=== PATIENT | male | born 1955 | race Caucasian/White ===

== ENCOUNTER 2022-03-04 13:14 | Outpatient (CLI) | payer MEDICARE, BC, SELFPAY ==
--- OUTSIDE RECORDS SUMMARY | 2022-03-04 07:24 | XMS_ITS | Encounter Summary ---
:1955 Author Organization [facility] Address [address] [place] [address] Care Team Providers Name Role Phone Elsewhere, Pcp Primary Care Provider Unavailable Reason for Visit Reason Onset Date Comments Outpatient COVID-19 Testing 05/16/2020 Encounter Details Date Type Department Care Team Description 05/16/2020 External Outreach Department of Shawn Agustin Infect ion [facility] Internal Medicine in J, D.O. Respiratory (Primary [place], [place] [address] Dx) [address] [place] [phone] Social History Tobacco Use Types Packs/Day Years Used Date Smoking Tobacco: Never Smokeless Tobacco: Never Alcohol Habits Answer Date Recorded How often do you have a drink containing alcohol? 2-4 times a month 02/19/2022 How many drinks containing alcohol do you have on a 1 or 2 02/19/2022 typical day when you are drinking? How often do you have six or more drinks on one Never 02/19/2022 occasion? Comment: Not asked Social Isolation Answer Date Recorded In a typical week, how many times do you More than three peter es a week 02/19/2022 talk on the phone with family, friends, or neighbors? How often do you get together with friends More than three t imes a week 02/19/2022 or relatives? How often do you attend adventism or More than 4 times per year 02/19/2022 sabianist services? Do you belong to any clubs or Yes 02/19/2022 organizations such as adventism groups, unions, fraternal or athletic groups, or school groups? How often do you attend meetings of the More than 4 times pe r year 02/19/2022 clubs or organizations you belong to? Are you now , , , 02/19/2022 , never or living with a partner? Physical Activity Answer Date Recorded On average, how many days per week do you engage in moderate to 6 days 02/19/2022 strenuous exercise (like walking fast, running, jogging, dancing, swimming, biking, or other activities that cause a light or heavy sweat)? On average, how many minutes do you engage in exercise at th is 140 min 02/19/2022 level? Stress Answer Date Recorded Do you feel stress - tense, restless, nervous, or anxious, N ot at all 02/19/2022 or unable to sleep at night because your mind is troubled all the time - these days? Financial Resource Strain Answer Date Recorded How hard is it for you to pay for the very basics like Not h jony at all 02/19/2022 food, housing, medical care, and heating? Intimate Partner Violence Answer Date Recorded Within the last year, have you been afraid of your partner o r No 02/19/2022 ex-partner? Within the last year, have you been humiliated or emotionall y No 02/19/2022 abused in other ways by your partner or ex-partner? Within the last year, have you been kicked, hit, slapped, or No 02/19/2022 otherwise physically hurt by your partner or ex-partner? Within the last year, have you been raped or forced to have any No 02/19/2022 kind of sexual activity by your partner or ex-partner? Food Insecurity Answer Date Recorded Within the past 12 months, you worried that your food would Never true 02/19/2022 run out before you got money to buy more. Within the past 12 months, the food you bought just didn't N ever true 02/19/2022 last and you didn't have money to get more. Transportation Needs Answer Date Recorded In the past 12 months, has lack of transportation kept you f rom No 02/19/2022 medical appointments or from getting medications? In the past 12 months, has lack of transportation kept you f rom No 02/19/2022 meetings, work, or getting things needed for daily living? Housing Stability Answer Date Recorded In the last 12 months, was there a time when you were not ab le No 02/19/2022 to pay the mortgage or rent on time? In the last 12 months, how many places have you lived? 1 02/19/2022 In the last 12 months, was there a time when you did not hav e a No 02/19/[address] or slept in a fci (including now)? Education Answer Date Recorded What is the highest level of Professional school degree (e.g ., , 01/06/2019 school you have completed or the DDS, DVM, NAHED) highest degree you have received? Sex Assigned at Date Recorded Male 12/02/2017 10:04 PM CDT documented as of this encounter Progress Notes Susannah Sepulveda R.N. - 05/16/2020 3:33 PM CST Encounter created for the drive-through COVID-19 testing. LOGIST documented in this encounter Plan of Treatment Not on filedocumented as of this encounter Procedures Procedure Name Priority Date/Time Associated Diagnosis Comme nts SARS CORONAVIRUS-2 Routine 05/16/2020 4:12 PM Infection Upper Results for this RNA, V CYTOLOGIST Respiratory procedure are i n the results section. documented in this encounter Results (ABNORMAL) SARS Coronavirus-2 RNA, V Symptomatic (05/16/2020 4:12 PM CYTOLOGIST) [facility] Method Time Signature SARS-CoV-2 Swab, 05/17/2020 MKTO Specimen Nasopharynx 4:59 PM CYTOLOGIST Source SARS CoV-2 Detected (C) Undetected 05/17/2020 MKTO RNA, TMA 4:59 PM CYTOLOGIST Comment: SARS-CoV-2 RNA present. ----ADDITIONAL INFORMATION---- This test is performed using the Aptima SARS-CoV-2 assay ([employer] which has received Emergency Use Authori zation (EUA) by the U.S. Food and Drug Administration. Fact sheets for this Emergency Use Autho rization (EUA) assay can be found at the following links: For Healthcare Providers: https://www.fd a.gov/media/050675/download For Patients: https://www.fda.gov/media/ 274979/download Specimen Anatomical Collection Method Collection Time Receive d Time (Source) Location / / Volume Laterality Varies 05/16/2020 4:12 PM 0 9:59 (Nasopharynx) CYTOLOGIST AM CYTOLOGIST Shawn Agustin D.O. LAB MICROBIOLOGY - GENERAL O RDERABLES Performing Organization Address City/State/[facility] Phon e Number [facility]- [address] [place] [address] [place] [address] System [address] documented in this encounter Visit Diagnoses Diagnosis Infection Upper Respiratory - Primary documented in this encounter Additional Health Concerns Infection Onset Date Last Indicated Resolved Time COVID19 Pending 05/16/2020 05/16/2020 05/17/2020 4:59 PM CYTOLOGIST documented as of this encounter Care Teams Psychologist Counseling Relationship Specialty Start Date End Date Elsewhere, Pcp PCP - General Internal Medicine 01/03/20 documented as of this encounter
--- OUTSIDE RECORDS SUMMARY | 2022-03-04 07:24 | XMS_ITS | Encounter Summary ---
:1955 Author Organization [facility] Address [address] [place] [address] Care Team Providers Name Role Phone Elsewhere, Pcp Primary Care Provider Unavailable Encounter Details Date Type Department Care Team Description 05/16/2020 Admin Visit Department of Family Medicine, [address] [address] [facility] [phone] Social History Tobacco Use Types Packs/Day Years [...] or relatives? How often do you attend judaism or More than 4 times per year 02/19/2022 nondenominational services? Do you belong to any clubs or Yes 02/19/2022 organizations such as judaism groups, unions, fraternal or athletic groups, or [...] place to sleep or slept in a chcf (including now)? Education Answer Date Recorded What is the highest level of Professional school degree (e.g ., , 01/06/2019 school you have completed or the DDS, DVM, NAHED) highest degree you have received? 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
--- OUTSIDE RECORDS SUMMARY | 2022-03-04 07:24 | XMS_ITS | Encounter Summary ---
:1955 Author Organization [facility] Address [address] [place] [id number] Care Team Providers Name Role Phone Nicole Andrade M.D., M.H.A. Primary Care Provider [phone] Reason for Referral Outpatient (Routine) - Closed Specialty Diagnoses / Procedures Referred By Contact Refer red To Contact Ophthalmology Naima Garcia M.D . [address] [phone] Referral ID Status Reason Start Date Expiration Date Visits Requ ested Visits Authorized [id number] Closed 12/31/2017 12/31/2018 1 1 Scheduling Instructions TD, with KPK 1 PM Encounter Details Date Type Department Care Team Description 12/31/2017 Documentation Department of Ophthalmology Peggy Garcia, in [facility] giselle Young [address] [place] [phone] Social History Tobacco Use Types Packs/Day Years Used Date Smoking Tobacco: Never Alcohol Habits Answer Date Recorded [...] or relatives? How often do you attend presybeterian or More than 4 times per year 02/19/2022 advent services? Do you belong to any clubs or Yes 02/19/2022 organizations such as presybeterian groups, unions, fraternal or athletic groups, or [...] place to sleep or slept in a jail (including now)? Sex Assigned at Date Recorded Male 12/02/2017 10:04 PM CDT documented as of this encounter Progress Notes Naima Garcia M.D. - 12/31/2017 11:04 AM CDT #1 Posterior vitreous detachment, right eye No vitreous hemorrhage or posterior pigmented cells noted. No retinal tear or detachment. Plan: RTC in 4-6 weeks. Discussed returning sooner if new or worsening symptoms, including flashes, new floaters, VF defect, worsening vision, or other new symptoms. Contact information provided. Patient expressed understanding and was in agreement with the plan. #2 Pinguecula, both eyes Mild; monitor documented in this encounter Plan of Treatment Scheduled Referrals Name Type Priority Associated Order Schedule Diagnoses Ophthalmology office Outpatient Referral Routine Expected: visit (clinic) 01/31/2018 (Approximate), Expires: 12/31/2020 documented as of this encounter Visit Diagnoses Diagnosis Detachment Vitreous Posterior Right - Pr imary Pinguecula Bilateral documented in this encounter Care Teams Regular Senior Care Provider Relationship Specialty Start Date End Date Nicole Andrade M.D., PCP - General Internal Medicine 09/03/10 02/01/18 M.H.A. [address] [place] [phone] documented as of this encounter
--- OUTSIDE RECORDS SUMMARY | 2022-03-04 07:24 | XMS_ITS | Encounter Summary ---
:1955 Author Organization [facility] Address [address] [place] [address] Care Team Providers Name Role Phone Nicole Andrade M.D., M.H.A. Primary Care Provider Encounter Details Date Type Department Care Team Description 11/03/2012 Hospital Encounter HX NO MAPPING Social History Tobacco Use Types Packs/Day Years Used Date Smoking Tobacco: Never Assessed Alcohol Habits Answer Date Recorded How often [...] or relatives? How often do you attend tenriism or More than 4 times per year 02/19/2022 mosque services? Do you belong to any clubs or Yes 02/19/2022 organizations such as tenriism groups, unions, fraternal or athletic groups, or [...] place to sleep or slept in a retirement (including now)? Sex Assigned at Date Recorded Male 12/02/2017 10:04 PM CDT documented as of this encounter Medications at Time of Discharge Medication Sig Dispensed Refills Start Date End Date aspirin 81 mg chewable Chew 1 tablet daily. 0 tablet cholecalciferol (VITAMIN Take 1 capsule by 0 12/03 D3) 1,000 Unit capsule mouth daily. 2000 DOCOSAHEXANOIC ACID/EPA Take 2 capsules by 0 09/01 (FISH OIL ORAL) mouth daily. Contains 500 mg Prosper-3 Fatty acids per capsule Take with meals multivitamin tablet Take 1 tablet by 0 09/16/2010 mouth daily. documented as of this encounter Plan of Treatment Not on filedocumented as of this encounter Visit Diagnoses Not on filedocumented in this encounter Care Teams Spd Manager Relationship Specialty Start Date End Date Nicole Andrade M.D., PCP - General Internal Medicine 09/03/10 02/01/18 M.H.A. [address] [place] [address] documented as of this encounter
--- OUTSIDE RECORDS SUMMARY | 2022-03-04 07:24 | XMS_ITS | Encounter Summary ---
:1955 Author Organization [facility] Address [address] [place] [address] Care Team Providers Name Role Phone Elsewhere, Pcp Primary Care Provider Unavailable Encounter Details Date Type Department Care Team Description 01/03/2020 Orders Only Department of Family Employer Based, [facility] [place] Covid Serology Screeni For Other Clinic, in [place], Testing Viral [facility] (COVID-19) (Primary [address]) [place] [address] Social History Tobacco Use Types Packs/Day Years [...] or relatives? How often do you attend islam or More than 4 times per year 02/19/2022 pentecostalism services? Do you belong to any clubs or Yes 02/19/2022 organizations such as islam groups, unions, fraternal or athletic groups, or [...] minutes do you engage in exercise at is 140 min 02/19/2022 level? Stress Answer [...] place to sleep or slept in a custodial (including now)? Education Answer Date Recorded What is the highest level of Professional school degree (e.g ., , 01/06/2019 school you have completed or the DDS, DVM, NAHED) highest degree you have received? Sex Assigned at Date Recorded Male 12/02/2017 10:04 PM CDT documented as of this encounter Plan of Treatment Not on filedocumented as of this encounter Results SARS-CoV-2 Total Antibody, Serum (01/03/2020 12:25 PM CDT) [facility] Method Time Signature SARS-CoV-2 Negative Negative 01/04/2020 ECLR Nucleocapsid 2:36 AM CDT Total Ab, S Comment: No antibodies to SARS-CoV-2 detected. Ne gative results may occur in serum collected too soon fo llowing infection or in immunosuppressed patients. Follow- up testing with a molecular test is recommended in symptom atic patients. This test should not be used to exclude activ e/recent COVID-19. ----ADDITIONAL INFORMATION---- Testing was performed using the Wayne El ecsys [id number] Reagent assay from [employer], which has received Emergency Use Authori zation(EUA) by the U.S. Food and Drug Administration . Fact sheets for this Emergency Use Autho rization (EUA) assay can be found at the following link s: For Healthcare Providers: https://www.fda.gov/media/521064/downloa d For Patients: https://www.fda.gov/media/047947/downloa d Specimen Anatomical Collection Method Collection Time Receive d Time (Source) Location / / Volume Laterality Blood (Blood, 01/03/2020 12:25 01/03/2020 9:51 Venous) PM CDT PM CDT Covid Serology Testing Employer Based LAB MICROBIOLOGY - BLOOD ORDERABLES Performing Organization Address City/State/ZIP Code Phon e Number [facility]- [address] [place] [address] [phone] [facility] [place] [address] System [address] documented in this encounter Visit Diagnoses Diagnosis Encounter For Screening For Other Viral Diseases (COVID-19) - Primary documented in this encounter Care Teams Painter Chassis Relationship Specialty Start Date End Date Elsewhere, Pcp PCP - General Internal Medicine 01/03/20 documented as of this encounter
--- OUTSIDE RECORDS SUMMARY | 2022-03-04 07:24 | XMS_ITS | Encounter Summary ---
:1955 Author Organization [facility] Address [address] [place] [address] Care Team Providers Name Role Phone Elsewhere, Pcp Primary Care Provider Unavailable Encounter Details Date Type Department Care Team Description 11/04/2020 Ancillary Procedure Department of Dermatology Social History Tobacco Use Types Packs/Day Years [...] or relatives? How often do you attend pentecostalism or More than 4 times per year 02/19/2022 pentecostal services? Do you belong to any clubs or Yes 02/19/2022 organizations such as pentecostalism groups, unions, fraternal or athletic groups, or [...] place to sleep or slept in a care home (including now)? Education Answer Date Recorded What [...] encounter Procedures Procedure Name Priority Date/Time Associated Comments Diagnosis DERMATOLOGY IMAGE Routine 11/04/2020 4:45 PM Resu lts for this EXAM CDT procedure are i n the results section. documented in this encounter Results Right Foot 529a-Dermatology Image Exam (11/04/2020 4:45 PM CDT) Specimen (Source) Anatomical Collection Method Collection Time Re ceived Time Location / / Volume Laterality 11/04/2020 4:43 PM CDT Narrative [facility] - 11/04/2020 4:46 PM CDT This order has been created and auto-finalized to support the import of images acquired without order. The clini thelma documentation to support these images can be found on the encounter negin t produced images. Provider Not In System IMG NON RAD IMAGING PROCEDUR ES Performing Organization Address City/State/ZIP Code Phon e Number [facility] NA documented in this encounter Visit Diagnoses Not on filedocumented in this encounter Care Teams Motel Manager Relationship Specialty Start Date End Date Elsewhere, Pcp PCP - General Internal Medicine 01/03/20 documented as of this encounter
--- OUTSIDE RECORDS SUMMARY | 2022-03-04 07:24 | XMS_ITS | Encounter Summary ---
:1955 Author Organization [facility] Address [address] [place] [address] Care Team Providers Name Role Phone Elsewhere, Pcp Primary Care Provider Unavailable Reason for Referral Outpatient (Routine) - Authorized Specialty Diagnoses / Procedures Referred By Contact Refer red To Contact Dermatology Yaa Hamm M.D. [facility] [address] [place] [address] Referral ID Status Reason Start Date Expiration Date Visits V isits Requested Authorized [id number] Authorized 02/23/2022 02/22/2025 1 1 Reason for Visit Appointment Request (Routine) - Closed Specialty Diagnoses / Procedures Referred By Contact Refer red To Contact Dermatology Diagnoses Screening Examination Skin Cancer Referral ID Status Reason Start Date Expiration Date Visits Requ ested Visits Authorized [id number] Closed 12/29/2021 12/29/2022 1 1 Encounter Details Date Type Department Care Team Description 02/23/2022 Office Visit Department of Isaq, Chadwick A, Cancer Skin Basal Cell Personal History (Primary Dx); Dermatology in M.D. Dermatoheliosis; [place], [place] [address] [facility] Keratosis Seborrheic; [address] [place], [place] Angioma Clarke; [place] [address] Nevi Multiple [phone] Social History Tobacco Use Types Packs/Day Years [...] or relatives? How often do you attend latter day or More than 4 times per year 02/19/2022 rastafarian services? Do you belong to any clubs or Yes 02/19/2022 organizations such as latter day groups, unions, fraternal or athletic groups, or [...] place to sleep or slept in a snf (including now)? Education Answer Date Recorded What is the highest level of Professional school degree (e.g ., , 01/06/2019 school you have completed or the DDS, DVM, NAHED) highest degree you have received? Sex Assigned at Date Recorded Male 12/02/2017 10:04 PM CDT documented as of this encounter Progress Notes Chadwick Tobin M.D. - 02/23/2022 9:20 AM CDT Correspondence to: Chadwick Tobin M.D. Supervising apprenticeship consultant, Dr. Hamm, was immediately available, but consultation was not required. 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 He was last seen in Dermatology on 12/30/[address] Tom and a biopsy was obtained from the right posterior forearm which showed an actinic lentigo. Another biopsy was obtained from the upper central sternum which was a pigmented seborrheic keratosis. Today, the patient is presenting for a full skin check. He noted a brown spot on his left pre-auricular cheek and left upper back that he would like further evaluation. Otherwise, the patient is retired and enjoys biking daily. He uses sunscreen before he goes out for his bike rides and does not reapply it. He has no other concerns. 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 He has 3 children and 4 grandchildren. Allergies Allergen Reactions Benazepril Cough Vancomycin Itching PAST MEDICAL HISTORY History nonmelanoma skin cancer PHYSICAL EXAM General: Awake, alert, in no acute distress, and with appropriate affect. Eyes: No scleral injection or icterus. No eyelid abnormalities. Skin: I have examined the scalp, face, neck, chest, abdomen, back, bilateral upper extremities, and bilateral lower extremities, and buttocks. -White skin type II -Well tanned skin with mild dermatoheliosis in sun exposed areas. -Primarily over the trunk and also on the extremities, there are scattered small brown round maculesand papules; many of these are examined dermoscopically and reveal regular symmetric network and appear consistent with banal-appearing nevi. -Scattered on face, trunk, and extremities, there are waxy stuck brown-chen papules and plaques consistent with seborrheic keratoses including spot of concern on left preauricular cheek and left upper back. -Over the trunk, there are a few bright red dome shaped papules consistent with clarke angiomas. -Ill-defined light brown to black macule/patch on sun-exposed areas consistent with solar lentigines ASSESSMENT / PLAN #1 Dermatoheliosis #2 History of nonmelanoma skin cancer Past history of skin cancer places this patient at increased risk of future NMSC. Sun protection andsun avoidance were reviewed with the patient. Educational materials were provided regarding skin self-examination, the warning signs and symptoms of skin cancer, and the proper use of sunscreens. Appropriate SPF sunscreen was recommended. I would recommend a full skin cancer screening examination withan appropriately trained clinician annually. #3 Banal-appearing nevi None of the patient's nevi reach the clinical threshold for biopsy. I recommend continued sun protection, self-skin examinations, and observation. Should any of the patient's nevi change in size, color, texture, or shape or develop symptoms such as itching or bleeding, I recommend an immediate return visit for reassessment. #4 Seborrheic keratoses #5 Clarke angiomas #6 Solar lentigines The benign nature of the skin lesion(s) was discussed with the patient. No treatment is required. I recommend continued observation. Should symptoms or changes develop related to this condition, I would recommend a return visit for reassessment. All questions answered. INFORMED CONSENT Discussed the risks, benefits, alternatives, and the necessity of other members of the healthcare team participating in the procedure. All questions answered and consent given. PATIENT EDUCATION Ready to learn. No apparent learning barriers were identified. Learning preferences include listening. Explained diagnosis and treatment plan; patient/guardian of patient expressed understanding of thecontent. documented in this encounter Plan of Treatment Scheduled Referrals Name Type Priority Associated Order Schedule Diagnoses Dermatology office Outpatient Referral Routine Ex pected: visit (clinic) 02/23/2023 (Approximate), Expires: 05/26/2023 documented as of this encounter Visit Diagnoses Diagnosis Cancer Skin Basal Cell Personal History - Primary Dermatoheliosis Keratosis Seborrheic Angioma Clarke Nevi Multiple documented in this encounter Care Teams Parts Salesperson Relationship Specialty Start Date End Date Elsewhere, Pcp PCP - General Internal Medicine 01/03/20 documented as of this encounter
--- OUTSIDE RECORDS SUMMARY | 2022-03-04 07:24 | XMS_ITS | Encounter Summary ---
:1955 Author Organization [facility] Address [address] [place] [address] Care Team Providers Name Role Phone Elsewhere, Pcp Primary Care Provider Unavailable Reason for Visit Reason Onset Date Comments Outpatient COVID-19 Testing 01/01/2020 Encounter Details Date Type Department Care Team Description 01/01/2020 External Outreach Department of Ally Marshall, P.A.-C. [address] [place] [address] Encounter For Family Medicine, Employer Based, Covid Serology Testing Screening For Other [facility], in [place], [place] (COVID-19) (Primary [address]) [place] [address] Social History Tobacco Use Types Packs/Day Years [...] or relatives? How often do you attend nondenominational or More than 4 times per year 02/19/2022 restorationist services? Do you belong to any clubs or Yes 02/19/2022 organizations such as nondenominational groups, unions, fraternal or athletic groups, or [...] place to sleep or slept in a senior care (including now)? Education Answer Date Recorded What is the highest level of Professional school degree (e.g ., , 01/06/2019 school you have completed or the DDS, DVM, NAHED) highest degree you have received? Sex Assigned at Date Recorded Male 12/02/2017 10:04 PM CDT documented as of this encounter Progress Notes Geena Salcido L.P.N. - 01/01/2020 8:21 AM CDT Encounter created for COVID-19 screening. documented in this encounter Plan of Treatment Not on filedocumented as of this encounter Procedures Procedure Name Priority Date/Time Associated Diagnosis Comme nts SARS-COV-2 IGG, Routine 01/01/2020 8:22 AM Encounter For Resul ts for this CHRISTOPHER, EMP SCRN, CDT Screening For Other proc edure are in BLOOD SPOT Viral Diseases the results (COVID-19) section. documented in this encounter Results (ABNORMAL) SARS-CoV-2 IgG, CHRISTOPHER, Emp Scrn, Blood Spot (01/01/2020 8:22 AM CDT) [facility] Method Time Signature SARS-CoV-2 Reactive (A) Negative 01/03/2020 SDSC IgG Emp Scrn, 2:30 AM CDT Ab Comment: This result is preliminary. ??False reac tive results can occur with this test. ??Do not assum e that you are protected based on these re sults alone. ?? Confirmation using another SARS-CoV-2 an tibody test, performed on blood drawn from a vein, is necessary to determine if you truly h ave antibodies. ?? Testing was performed using the EUROIMMU N Skaz-YUAD-YrB-2 CHRISTOPHER (IgG). ??This test has received Emergency Use Authorization (EUA) by the U.S. Food and Drug Administration and is used per city plant supervisor's instructions, but it is modified from the city plant supervisor's instructions wit h a bridging study to include dried blood spot specimens. ? ? Performance characteristics were verifie d by [facility] in a manner consistent with CLIA require ments. Specimen Anatomical Collection Method Collection Time Receive d Time (Source) Location / / Volume Laterality Blood (Blood, 01/01/2020 8:22 AM 01/02/20 20 5:11 Venous) CDT PM CDT Covid Serology Testing Employer Based LAB MICROBIOLOGY - BLOOD ORDERABLES Performing Organization Address City/State/ZIP Code Phon e Number [facility] [address] [place] [address] SUPPORT CENTER [facility] [place] [address] Laboratory Medicine and Pathology [address] [place] documented in this encounter Visit Diagnoses Diagnosis Encounter For Screening For Other Viral Diseases (COVID-19) - Primary documented in this encounter Care Teams Lathe Spotter Relationship Specialty Start Date End Date Elsewhere, Pcp PCP - General Family Medicine 02/02/18 01/02/20 documented as of this encounter
--- OUTSIDE RECORDS SUMMARY | 2022-03-04 07:24 | XMS_ITS | Clinical Summary ---
:1955 Author Organization [facility] Address [address] [place] [address] Care Team Providers Name Role Phone Elsewhere, Pcp Primary Care Provider Unavailable Source Comments Patient records contain information from all sites at [facility]. For routine questions regarding patient records, call [phone] during business hours, M-F 8:00 AM - 5:00 PM Central Time. Record requests for emergency care only can be directed to [phone] at any time.[facility] Allergies Active Allergy Reactions Severity Noted Date Comments Benazepril Cough 12/30/2010 Vancomycin Itching 08/22/2011 Medications Medication Sig Dispensed Refills Start Date End Date Status aspirin 81 mg chewable Chew 1 tablet 0 09/16/2010 Active tablet daily. DOCOSAHEXANOIC ACID/EPA Take 2 capsules 0 09/16/2010 Active (FISH OIL ORAL) by mouth daily. Contains 500 mg [place]-3 Fatty acids per capsule Take with meals multivitamin tablet Take 1 tablet by 0 09/16/2010 Active mouth daily. cholecalciferol Take 1 capsule by 0 12/29/2011 Active (VITAMIN D3) 1,000 Unit mouth daily. 2000 capsule naphazoline-pheniramine Administer 1 drop 0 Active (OPCON-A) 0.82653-7.315 into both eyes % ophthalmic solution daily. 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 Cancer S kin Basal Cell Personal History (Primary Dx); Dermatoheliosis ; Keratosis Sebor rheic; Angioma Clarke; Nevi Multiple from Last 3 Months Immunizations Name Administration Dates Next Due HepB, Unspecified 01/02/1980, 08/04/1979, 07/04/1979 Influenza Split 04/12/2012, 04/28/2011, 04/03/2010, 06/16/2007 MMR 01/02/1992 OPV 11/15/1959, 01/10/1959 SARS-COV-2 (COVID-19) - PFIZER (12 08/18/2020, 07/28/2020 years or older) Td, (Adult) Unspecified 01/02/1992 Tdap 01/23/2010 influenza vaccine quad 04/23/2020 (FLUZONE/FLUARIX) (6 months and older)(PF) Family History Medical History Relation Name Comments Melanoma Father Glaucoma Mother Relation Name Status Comments Father Mother Social History Tobacco Use Types Packs/Day Years [...] or relatives? How often do you attend alevism or More than 4 times per year 02/19/2022 roman catholic services? Do you belong to any clubs or Yes 02/19/2022 organizations such as alevism groups, unions, fraternal or athletic groups, or [...] place to sleep or slept in a prison (including now)? Education Answer Date Recorded What is the highest level of Professional school degree (e.g ., , 01/06/2019 school you have completed or the DDS, DVM, NAHED) highest degree you have received? Sex Assigned at Date Recorded Male 12/02/2017 10:04 PM CDT Last Filed Vital Signs Vital Sign Reading Time Taken Comments Blood Pressure 139/86 11/30/2013 8:54 AM Vital sign result CDT from Clinical No jennifer. Pulse 60 11/30/2013 8:54 AM Vital sign result CDT from Clinical No jennifer. Temperature - - Respiratory Rate 12 08/23/2011 6:20 AM EXPLOSIVE TECHNICIAN Oxygen Saturation - - Inhaled Oxygen - - Concentration Weight 81.3 kg (179 lb 3.7 11/15/2012 3:14 PM oz) CDT Height 106.5 cm (3' 5.93) 11/15/2012 3:14 PM CDT Body Mass Index 71.68 11/15/2012 3:14 PM CDT Plan of Treatment Health Maintenance Due Date Last Done Comments CT Colonography 1955 Cologuard 1955 FIT 1955 HIV Screening 1955 Hepatitis C Screening 1955 Fasting Glucose for Diabetes 08/22/2014 08/22/2011, 012 Screening DTaP,Tdap,and Td Vaccines (2 - Td 01/24/2020 01/23/2010, , or Tdap) 01/02/1992 Depression Screening (Annual 07/04/2021 PHQ-2) Fall Risk Screen (Annual) 2022 Pneumococcal vaccine (65+ years) 2022 (1 - PCV) Influenza Vaccine (#1) 2022 05/10/2021, 04/23/2020, 04/14/2019, Additional history exists Colonoscopy 11/03/2022 11/03/2012, 11/03/2012, 02/01/2007 (Performed elsewhere) Colorectal Cancer Screening 11/03/2022 Zoster Vaccines Completed 03/10/2021, 12/02/2020 COVID-19 Vaccine Completed 10/29/2021, 06/05/2021, 08/18/2020, Additional history exists Insurance Payer Benefit Plan / Subscriber ID Effective Phone Address T ype Group Dates [employer] [id number] 2022[place] [id number] Indemnity [place] [address] MEDICARE MEDICARE A AND [id number] 2022-Prese [id number] [place] [address] Advance Directives For more information, please contact: [phone] Documents on File Type Date Recorded 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 See document viewer. Care Teams Deputy Grand Jury Relationship Specialty Start Date End Date Elsewhere, Pcp PCP - General Internal Medicine 01/03/20
--- OUTSIDE RECORDS SUMMARY | 2022-03-04 07:24 | XMS_ITS | Encounter Summary ---
:1955 Author Organization [facility] Address [address] [place] [address] Care Team Providers Name Role Phone Nicole Andrade M.D., M.H.A. Primary Care Provider [phone] Encounter Details Date Type Department Care Team Description 11/30/2013 Hospital Encounter HX RST [facility] Stephanie Ruggiero M.D. [address] [place] [address] (Wo rk) Social History Tobacco Use Types Packs/Day Years [...] or relatives? How often do you attend mormonism or More than 4 times per year 02/19/2022 mu-ism services? Do you belong to any clubs or Yes 02/19/2022 organizations such as mormonism groups, unions, fraternal or athletic groups, or [...] place to sleep or slept in a group home (including now)? Sex Assigned at Date Recorded Male 12/02/2017 10:04 PM CDT documented as of this encounter Last Filed Vital Signs Vital Sign Reading Time Taken Comments Blood Pressure 139/86 11/30/2013 8:54 AM CDT Vital sign result from Clinical Notes. Pulse 60 11/30/2013 8:54 AM CDT Vital sign result from Clinical Notes. Temperature - - Respiratory Rate - - Oxygen Saturation - - Inhaled Oxygen Concentration - - Weight - - Height - - Body Mass Index - - documented in this encounter Medications at Time of Discharge Medication Sig Dispensed Refills Start Date End Date aspirin 81 mg chewable Chew 1 tablet daily. 0 tablet cholecalciferol (VITAMIN Take 1 capsule by 0 12/03 D3) 1,000 Unit capsule mouth daily. 2000 DOCOSAHEXANOIC ACID/EPA Take 2 capsules by 0 09/01 (FISH OIL ORAL) mouth daily. Contains 500 mg Bern-3 Fatty acids per capsule Take with meals multivitamin tablet Take 1 tablet by 0 09/16/2010 mouth daily. documented as of this encounter Plan of Treatment Not on filedocumented as of this encounter Visit Diagnoses Not on filedocumented in this encounter Care Teams Sweatband Perforator Relationship Specialty Start Date End Date Nicole Andrade M.D., PCP - General Internal Medicine 09/03/10 02/01/18 M.H.A. [address] [place] [address] documented as of this encounter
--- OUTSIDE RECORDS SUMMARY | 2022-03-04 07:24 | XMS_ITS | Encounter Summary ---
:1955 Author Organization [facility] Address [address] [place] [address] Care Team Providers Name Role Phone Elsewhere, Pcp Primary Care Provider Unavailable Encounter Details Date Type Department Care Team Description 08/18/2020 Immunization Department of [facility] Jhonny Tillman [facility] COVID-19 Medicine, Pawan Brumfield M.D. Vaccine Immunization [facility], in [address] [place] [phone] [place] [address] [place], [place] (Work) [phone] Social History Tobacco Use Types Packs/Day Years [...] or relatives? How often do you attend pentecostal or More than 4 times per year 02/19/2022 rastafarian services? Do you belong to any clubs or Yes 02/19/2022 organizations such as pentecostal groups, unions, fraternal or athletic groups, or [...] or slept in a retirement (including now)? Education Answer Date Recorded What is the highest level of Professional school degree (e.g ., , 01/06/2019 school you have completed or the DDS, DVM, NAHED) highest degree you have received? Sex Assigned at Date Recorded Male 12/02/2017 10:04 PM CDT documented as of this encounter Plan of Treatment Not on filedocumented as of this encounter Visit Diagnoses Diagnosis Encounter For COVID-19 Vaccine Immunizat ion documented in this encounter Care Teams Surgical Tech Relationship Specialty Start Date End Date Elsewhere, Pcp PCP - General Internal Medicine 01/03/20 documented as of this encounter
--- OUTSIDE RECORDS SUMMARY | 2022-03-04 07:24 | XMS_ITS | Encounter Summary ---
:1955 Author Organization [facility] Address [address] [place] [address] Care Team Providers Name Role Phone Elsewhere, [...] or relatives? How often do you attend muslim or More than 4 times per year 02/19/2022 mandaeism services? Do you belong to any clubs or Yes 02/19/2022 organizations such as muslim groups, unions, fraternal or athletic groups, or [...] Associated Comments Diagnosis DERMATOLOGY IMAGE Routine 11/04/2020 4:46 PM Resu lts for this EXAM CDT procedure are i n the results section. documented in this encounter Results Chest 521-Dermatology Image Exam (11/04/2020 4:46 PM CDT) Specimen (Source) Anatomical Collection Method [...] on filedocumented in this encounter Care Teams Manager E Commerce Relationship Specialty Start Date End Date Elsewhere, Pcp PCP - General Internal Medicine 01/03/20 documented as of this encounter
--- OUTSIDE RECORDS SUMMARY | 2022-03-04 07:24 | XMS_ITS | Encounter Summary ---
:1955 Author Organization [facility] Address [address] [place] [address] Care Team Providers Name Role Phone Elsewhere, Pcp Primary Care Provider Unavailable Reason for Visit Reason Comments Biopsy Outpatient (Routine) - Closed Specialty Diagnoses / Procedures Referred By Contact Refer red To Contact Dermatology Diagnoses [facility] Danna Tom M.D. [facility] Procedures Dermatology mis minor procedure [address] [place] [address] Referral ID Status Reason Start Date Expiration Date Visits Requ ested Visits Authorized [id number] Closed 11/04/2020 11/04/2021 1 1 Encounter Details Date Type Department Care Team Description 12/30/2020 Procedure visit Department of Danna Tom Tumor Skin Uncertain Behavior (Primary Dx); Dermatology in Pawan Cartagena M.D. [place], [place] [address] [phone] Social History Tobacco Use Types Packs/Day Years [...] or relatives? How often do you attend catholic or More than 4 times per year 02/19/2022 hindu services? Do you belong to any clubs or Yes 02/19/2022 organizations such as catholic groups, unions, fraternal or athletic groups, or [...] place to sleep or slept in a penitentiary (including now)? Education Answer Date Recorded What is the highest level of Professional school degree (e.g ., , 01/06/2019 school you have completed or the DDS, DVM, NAHED) highest degree you have received? Sex Assigned at Date Recorded Male 12/02/2017 10:04 PM CDT documented as of this encounter Progress Notes Danna Tom M.D. 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 The patient was last seen by me in Dermatology clinic on 11/04/2020nd photographs were taken at that time. MEDICAL HISTORY 1. Right islam: Nodular basal cell carcinoma, status post Mohs surgery on 11/30/[address] Casiano at [facility] ?? FAMILY HISTORY Father with history of melanoma OBJECTIVE PHYSICAL EXAMINATION General: Awake, alert, in no acute distress, and with appropriate affect. Skin: Limited skin exam done today. Examination of the right posterior forearm reveals a 1.5 x 1 mm brown nevus with slight irregular pigmentation. Examination of the upper central sternum reveals a 5 x 3.5 mm brown macule with slight irregular brown coloration and milia on dermoscopy and most likely represents a pigmented SK. ASSESSMENT / PLAN #1 Right posterior forearm: Rule out atypical nevus A 3mm punch biopsy removing the nevus was done in clinic and submitted for pathology. I will correspond with patient as to the results and if any further treatment is needed. CONSENT Discussed the risks, benefits, alternatives, and the necessity of other members of the healthcare team participating in the procedure. All questions answered and consent given. UNIVERSAL PROTOCOL Procedural pause conducted to verify: correct patient identity, procedure to be performed, and as applicable, correct side and site, correct patient position, and availability of implants, special equipment, or special requirements. PROCEDURE INFORMATION Punch biopsy. We explained the potential diagnosis and recommended that we obtain a biopsy. The risks and benefitsof the procedure were discussed, and the patient consented to these procedures. Using 1% lidocaine with epinephrine for local anesthesia, a 3 mm punch biopsy was obtained from the right posterior forearm. Biopsy submitted to Dermatopathology. Biopsy site closed with a top layer of 2, 4-0 nylon superficial sutures. The skin sutures need to be removed in 10-14 days. Dressing was applied, and wound careinstructions were explained. Biopsy results and any further recommendations will be communicated to the patient by letter. Patient given pamphlet [id number]. #2 Upper central sternum: Probable pigmented SK, doubt atypical nevus A shave biopsy removing the lesion was done in clinic and submitted for pathology. I will correspondwith patient as to the results and if any further treatment is needed. CONSENT Discussed the risks, benefits, alternatives, and the necessity of other members of the healthcare team participating in the procedure. All questions answered and consent given. UNIVERSAL PROTOCOL Procedural pause conducted to verify: correct patient identity, procedure to be performed, and as applicable, correct side and site, correct patient position, and availability of implants, special equipment, or special requirements. PROCEDURE INFORMATION Shave biopsy. We explained the potential diagnosis and recommended that we obtain a biopsy. The risks and benefitsof the procedure were discussed, and the patient consented to these procedures. Using 1% lidocaine with epinephrine for local anesthesia, a shave biopsy was obtained from the sternum (upper central) x 1 lesion. Biopsy submitted to Dermatopathology for H&E. Special stains will be performed as indicated. The bleeding was well controlled with application of aluminum chloride. Dressing was applied, and wound care instructions were explained. Biopsy results and any further recommendations will be communicated to the patient by letter. Patient given pamphlet [id number]. PATIENT EDUCATION: Ready to learn. No apparent learning barriers were identified. Learning preferences include listening. Explained diagnosis and treatment plan; patient/guardian of patient expressed understanding of thecontent. PATIENT EDUCATION: Ready to learn. No apparent learning barriers were identified. Learning preferences include listening. Explained diagnosis and treatment plan; patient/guardian of patient expressed understanding of thecontent. By signing my name below, I, Tanya Newton, attest that this documentation has been prepared underthe direction and in the presence of Danna Tom M.D. Electronically Signed: bj Seo. Danna Castro M.D., personally performed the services described in this documentation. All medical record entries made by the scribe were at my direction and in my presence. I have reviewed the chart and discharge instructions (if applicable) and agree that the record reflects my personal performance and is accurate and complete. Danna Tom M.D. documented in this encounter Miscellaneous Notes Result Encounter Note - Danna Tom M.D. - 01/08/2021 7:46 AM CDT B9 lesions x2 . [place] pt, please send letter. documented in this encounter Plan of Treatment Not on filedocumented as of this encounter Procedures Procedure Name Priority Date/Time Associated Comments Diagnosis DERMATOPATHOLOGY CONSULT Routine 12/30/2020 9:15 Tumor Skin Results for this AM CDT Uncertain Behavior procedure are in the results section. documented in this encounter Results Dermatopathology Consult (12/30/2020 9:15 AM CDT) Component Value Ref Test Analysis Performed Pathologis t Range Method Time At Signature 01/07/2021 PDRM 11:17 AM CDT Participated in Amy Sierra, 01/07/2021 PDR the M.D.-Pathology 11:17 AM Interpretation Fellow CDT Report Corinna Villavicencio, 01/07/2021 PDRM electronically MLui 11:17 AM signed by CDT Gross A: ?? Received in formalin labeled with the patient's name , 01/07/2021 PDRM Description: medical record number, and right posterior forearm i s a 11:17 AM 0.3 cm in diameter pale mack skin punch biopsy, excised to CDT the depth of 0.2 cm. ??Centrally located on the skin surface is a 0.2 x 0.1 cm dark brown, hyperpigmented lesion with ill-defined and irregular borders. The specimen is submitted en toto in cassette A1. Grossed by AF. B: ?? Received in formalin labeled with the patient's name, medical record number, and sternum, upper central is a 0.8 x 0.7 x 0.1 cm pale-mack skin shave biopsy. Eccentrically located on the skin surface and abutting the periphery is a 0.7 x 0.3 cm dark brown, hyperpigmented lesion with ill-defined and irregular borders. ??The specimen is trisected and submitted entirely in cassette B1. ??Grossed by AF. Interpetation FINAL DIAGNOSIS 01/07/2021 PDR A. ??DermPath Consult Wet Tissue; Right posterior forearm, 11:17 AM Skin punch biopsy: ??Actinic lentigo and focal junctional CDT nevus COMMENT Multiple tissue levels examined. ??Melan-A stain highlights melanocytes. B. ??DermPath Consult Wet Tissue; Sternum, upper central, Skin shave biopsy: ??Pigmented seborrheic keratosis Specimen Anatomical Collection Method Collection Time Receive d Time (Source) Location / / Volume Laterality Tissue 12/30/2020 9:15 AM CDT 11:13 AM CDT Narrative This result has an attachment that is no t available. Danna Tom M.D. LAB PATH DERM ORDERABLES Performing Organization Address City/State/ZIP Code Phon e Number [facility] - [address] [place], [place] [address] [facility] [place] [address] Laboratories-[facility] [address] documented in this encounter Visit Diagnoses Diagnosis Tumor Skin Uncertain Behavior - Primary Nevi Multiple documented in this encounter Care Teams Sheet Rock Applier Relationship Specialty Start Date End Date Elsewhere, Pcp PCP - General Internal Medicine 01/03/20 documented as of this encounter
--- OUTSIDE RECORDS SUMMARY | 2022-03-04 07:24 | XMS_ITS | Encounter Summary ---
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 How often do you attend yarsani or More than 4 times per year 02/19/2022 quaker services? Do you belong to any clubs or Yes 02/19/2022 organizations such as yarsani groups, unions, fraternal or athletic groups, or [...] place to sleep or slept in a halfway (including now)? Education Answer Date Recorded What is the highest level of Professional school degree (e.g ., , 01/06/2019 school you have completed or the DDS, DVM, NAHED) highest degree you have received? Sex Assigned at Date Recorded Male 12/02/2017 10:04 PM CDT documented as of this encounter Plan of Treatment Scheduled Referrals Name Type Priority Associated Diagnoses Order S sarahdule Covid immunization Outpatient Referral Routine Encounter For E xpected: office visit Covid-19 Vaccine 08/18/2020, Subsequent; 21 days Immunization Expires: 07/28/2023 documented as of this encounter Visit Diagnoses Diagnosis Encounter For COVID-19 Vaccine Immunizat ion - Primary documented in this encounter Care Teams Video Surveillance Technician Relationship Specialty Start Date End Date Elsewhere, Pcp PCP - General Internal Medicine 01/03/20 documented as of this encounter
--- OUTSIDE RECORDS SUMMARY | 2022-03-04 07:24 | XMS_ITS | Encounter Summary ---
:1955 Author Organization [facility] Address [address] [place] [address] Care Team Providers Name Role Phone Elsewhere, Pcp Primary Care Provider Unavailable Reason for Visit Reason Comments Flashes, Light Appointment Request (Routine) - Closed Specialty Diagnoses / Procedures Referred By Contact Refer red To Contact Ophthalmology Referral ID Status Reason Start Date Expiration Date Visits Requ ested Visits Authorized [id number] Closed 02/01/2018 02/01/2019 1 Encounter Details Date Type Department Care Team Description 02/28/2018 Office Visit Department of Naima Garcia Ophthalmology in P, [facility]. [facility] [place], [place] (Primary Dx) [address] [place] [phone] Social History Tobacco Use Types Packs/Day [...] More than 4 times per year 02/19/2022 anglican services? Do you belong to any clubs [...] or slept in a chcf (including now)? Sex Assigned at Date Recorded Male 12/02/2017 10:04 PM CDT documented as of this encounter Progress Notes Naima Garcia M.D. - 02/28/2018 1:30 PM CDT #1 Posterior vitreous detachment, right eye No vitreous hemorrhage or posterior pigmented cells noted. No retinal tear or detachment. Plan: Observe. Discussed returning sooner if new or worsening symptoms, including flashes, new floaters, VF defect, worsening vision, or other new symptoms. Contact information provided. Patient expressed understanding and was in agreement with the plan. #2 Pinguecula, both eyes Mild; monitor documented in this encounter Plan of Treatment Not on filedocumented as of this encounter Visit Diagnoses Diagnosis Detachment Vitreous Posterior Right - Pr imary documented in this encounter Care Teams Php Consultant Relationship Specialty Start Date End Date Elsewhere, Pcp PCP - General Family Medicine 02/02/18 01/02/20 documented as of this encounter
--- OUTSIDE RECORDS SUMMARY | 2022-03-04 07:24 | XMS_ITS | Encounter Summary ---
:1955 Author Organization [facility] Address [address] [place] [address] Care Team Providers Name Role Phone Nicole Andrade M.D., M.H.A. Primary Care Provider [phone] Reason for Visit Outpatient (Routine) - Closed Specialty Diagnoses / Procedures Referred By Contact Refer red To Contact Ophthalmology Naima Garcia M.D . [place] [address] [place] [address] Referral ID Status Reason Start Date Expiration Date Visits Requ ested Visits Authorized [id number] Closed 12/31/2017 12/31/2018 1 1 Encounter Details Date Type Department Care Team Description 01/31/2018 Office Visit Department of Naima Garcia [facility] Ophthalmology marlys France M.D. [facility] [place], [place] (Primary Dx) [address] [place] [phone] Social History Tobacco Use Types Packs/Day [...] or relatives? How often do you attend gnosticist or More than 4 times per year 02/19/2022 moravian services? Do you belong to any clubs or Yes 02/19/2022 organizations such as gnosticist groups, unions, fraternal or athletic groups, or [...] place to sleep or slept in a correction (including now)? Sex Assigned at Date Recorded Male 12/02/2017 10:04 PM CDT documented as of this encounter Progress Notes Naima Garcia M.D. - 01/31/2018 1:[address] Anderson was not examined today as he had to leave before been seen. I asked Jared Alexander to call to encourage him to reschedule when possible. Ms. Munoz informed me that he stated he will call whenpossible to reschedule. documented in this encounter Plan of Treatment Not on filedocumented as of this encounter Visit Diagnoses Diagnosis Detachment Vitreous Posterior Right - Pr imary documented in this encounter Care Teams Clinical Asst Relationship Specialty Start Date End Date Nicole Andrade M.D., PCP - General Internal Medicine 09/03/10 02/01/18 M.H.A. [address] [place] [address] documented as of this encounter
--- OUTSIDE RECORDS SUMMARY | 2022-03-04 07:24 | XMS_ITS | Encounter Summary ---
:1955 Author Organization [facility] Address [address] [place] [address] Care Team Providers Name Role Phone Nicole Andrade M.D., M.H.A. Primary Care Provider [phone] Encounter Details Date Type Department Care Team Description 10/08/2017 Abstract DATA ABSTRACTION Provider, Historical Social History Tobacco Use Types Packs/Day Years [...] or relatives? How often do you attend baptism or More than 4 times per year 02/19/2022 tenriism services? Do you belong to any clubs or Yes 02/19/2022 organizations such as baptism groups, unions, fraternal or athletic groups, or [...] on filedocumented in this encounter Care Teams Bracelet Former Relationship Specialty Start Date End Date Nicole Andrade M.D., PCP - General Internal Medicine 09/03/10 02/01/18 M.H.A. [address] [place] [address] documented as of this encounter
--- OUTSIDE RECORDS SUMMARY | 2022-03-04 07:24 | XMS_ITS | Encounter Summary ---
:1955 Author Organization [facility] Address [address] [place] [address] Care Team Providers Name Role Phone Elsewhere, Pcp Primary Care Provider Unavailable Encounter Details Date Type Department Care Team Description 01/03/2020 Hospital Encounter Department of Beny Velazquez Encoun ter For Laboratory Medicine M.Karol Screening For Other in [address] (COVID-19) [address] [place] [phone] Social History Tobacco Use Types Packs/Day Years [...] or relatives? How often do you attend baptist or More than 4 times per year 02/19/2022 episcopal services? Do you belong to any clubs or Yes 02/19/2022 organizations such as baptist groups, unions, fraternal or athletic groups, or [...] OIL ORAL) mouth daily. Contains 500 mg Wadley-3 Fatty acids per capsule Take with meals multivitamin tablet Take 1 tablet by 0 09/16/2010 mouth daily. naphazoline-pheniramine Administer 1 drop 0 (OPCON-A) 0.58984-1.315 % into both eyes daily. ophthalmic solution documented as of this encounter Plan of Treatment Not on filedocumented as of this encounter Procedures Procedure Name Priority Date/Time Associated Diagnosis Comme nts SARS-COV-2 TOTAL Routine 01/03/2020 12:25 PM Encounter For Res ults for this ANTIBODY, SERUM CDT Screening For Other proce dure are in Viral Diseases the results (COVID-19) section. documented in this encounter Results SARS-CoV-2 Total Antibody, Serum (01/03/2020 12:25 PM CDT) [facility] Method Time Signature SARS-CoV-2 Negative Negative [...] was performed using the [employer] [id number] Reagent assay from [employer], which has received Emergency Use Authori zation(EUA) by the U.S. Food and Drug Administration . Fact sheets for this Emergency Use Autho rization (EUA) assay can be found at the following link s: For Healthcare Providers: https://www.fda.gov/media/084211/downloa d For Patients: https://www.fda.gov/media/397634/downloa d Specimen Anatomical Collection Method Collection Time Receive d Time (Source) Location / / Volume Laterality Blood (Blood, 01/03/2020 12:25 01/03/2020 9:51 Venous) PM CDT PM CDT Covid Serology Testing Employer Based LAB MICROBIOLOGY - BLOOD ORDERABLES Performing Organization Address City/State/[facility] Phon e Number [facility]- [address] [place] [address] [phone] [facility] [place] [address] [address] documented in this encounter Visit Diagnoses Diagnosis Encounter For Screening For Other Viral Diseases (COVID-19) documented in this encounter Care Teams Movie Stunt Performer Relationship Specialty Start Date End Date Elsewhere, Pcp PCP - General Internal Medicine 01/03/20 documented as of this encounter
--- OUTSIDE RECORDS SUMMARY | 2022-03-04 07:24 | XMS_ITS | Encounter Summary ---
:1955 Author Organization [facility] Address [address] [place] [address] Care Team Providers Name Role Phone Nicole Andrade M.D., M.H.A. Primary Care Provider [phone] Reason for Referral Outpatient (Routine) - Closed Specialty Diagnoses / Procedures Referred By Contact Refer red To Contact Dermatology Traci Gaines APRN [facility] C.N.P., D.N.P. [address] [place] [address] Referral ID Status Reason Start Date Expiration Date Visits Requ ested Visits Authorized [id number] Closed 12/07/2017 12/07/2018 1 1 Scheduling Instructions [facility] Reason for Visit Appointment Request (Routine) - Closed Specialty Diagnoses / Procedures Referred By Contact Ann orosco To Contact Dermatology Referral ID Status Reason Start Date Expiration Date Visits Requ ested Visits Authorized [id number] Closed 12/01/2017 12/01/2018 1 1 Encounter Details Date Type Department Care Team Description 12/07/2017 Office Visit Department of Traci Gaines Examination Skin Cancer (Primary Dx); Dermatology in [facility] [place], C.N.P., Dermatohe liosis; [place], [place] D.N.P. Keratosis Seborrheic; [address] [place] [address] Nevi Multiple; [place], [place] Melanoma Fami ly History [phone] Social History Tobacco Use Types Packs/Day Years [...] or relatives? How often do you attend episcopalian or More than 4 times per year 02/19/2022 zoroastrianism services? Do you belong to any clubs or Yes 02/19/2022 organizations such as episcopalian groups, unions, fraternal or athletic groups, or [...] place to sleep or slept in a usp (including now)? Sex Assigned at Date Recorded Male 12/02/2017 10:04 PM CDT documented as of this encounter Consult Notes Traci Gaines APRN, C.N.P., D.N.P. - 12/07/2017 11:10 AM CDT CHIEF COMPLAINT / REASON FOR VISIT Skin cancer screening examination Supervised by: Dr. Ama Neumann ([phone]) Supervising quantitative consultant, Dr. Ama Neumann, was immediately available but consultation was not required. HISTORY OF PRESENT ILLNESS Dr. Anderson is a 62 y.o. male who presents today for a full skin cancer screening examination. 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 The patient has a history of a basal cell carcinoma on his right mu-ism that was treated in 2013 with Mohs micrographic surgery. The patient was last seen in the department by Dr. Navarrete in February 2017. During this visit, a seborrheic keratosis on the right forehead was treated with liquid nitrogen. The patient states a portion of the lesion has persist andhe would like the lesion treated today with liquid nitrogen. The patient continues to monitor a nevus on pad of the right great toe. He denies changes to the lesion. The patient denies areas that bleedor cause pain. The patient is diligent with photoprotection with sunscreen and protective clothing. Allergies Allergen Reactions ??? Benazepril Cough ??? Vancomycin Itching PAST MEDICAL HISTORY 1. Basal cell carcinoma, right mu-ism in 2013 treated with Mohs FAMILY HISTORY Father: History of malignant melanoma on the foot PHYSICAL EXAM General: Awake, alert, in no acute distress, and with appropriate affect. Skin: I have examined the scalp, face, neck, chest, abdomen, back, buttocks, bilateral upper extremities, and bilateral lower extremities. White skin type II with evidence of dermatoheliosis and lentigines on the sun-exposed areas. On the right forehead/hairline is a light brown waxy, stuck on slightly raised papule. There is a similar lesion on the right temporal/sideburn area. On the left upper cheek is an approximate 4-5 mm light brown macule, appearing consistent with a lentigo under dermoscopy. On the left upper anterior thigh is a traumatic tattoo from prior lead exposure. On the pad ofthe first digit of the right foot is a symmetric brown macule with no worrisome features seen under d ermoscopy. The lesion was examined with images in QREADS with no changes seen during evaluation. There is a well-healed scar on the right mu-ism from a previous basal cell carcinoma site without evidence of recurrence on inspection and palpation. There are red, dome-shaped papules scattered throughoutthe trunk. Eyes: No scleral injection or icterus. No eyelid abnormalities. Lymph: No lower extremity edema. IMPRESSION / REPORT / PLAN #1 Skin cancer screening examination #2 History of nonmelanoma skin cancer #3 Family history of malignant melanoma, patient's father #4 Dermatoheliosis Reassured the patient there is no evidence of recurrent skin cancer. Sun protection and sun avoidance were reviewed with the patient. Educational materials were provided regarding skin self-examination, the warning signs and symptoms of skin cancer, and the proper use of sunscreens. I would recommend a full skin cancer screening examination with an appropriately trained clinician every year. #5 Seborrheic keratoses, right forehead and right mu-ism The benign nature of this skin lesion was discussed with the patient. Given this is bothersome to the patient, we decided to treat it with cryotherapy. After explaining the procedure, discussing the associated risks, benefits, and alternatives, and obtaining verbal informed consent, the lesion(s) underwent treatment with liquid nitrogen cryotherapy inthe standard fashion. Wound care was discussed. Patient offered educational materials. #6 Benign-appearing nevi The ABCDE criteria for melanoma was reviewed with the patient. None of the patient's nevi reach the clinical threshold for biopsy. I recommend continued sun protection, self-skin examinations, and observation. Should any of the patient's nevi change in size, color, texture, or shape or develop symptoms such as itching or bleeding, I recommend an immediate return visit for reassessment. #7 Clarke angiomas #8 Lentigines The benign nature of the skin lesion(s) was discussed with the patient. No treatment is required. I recommend continued observation. Should symptoms or changes develop related to this condition, I would recommend a return visit for reassessment. All questions answered. PATIENT EDUCATION Ready to learn, no apparent learning barriers were identified; learning preferences include listening. Explained diagnosis and treatment plan; patient/guardian of patient expressed understanding of thecontent. documented in this encounter Plan of Treatment Scheduled Referrals Name Type Priority Associated Order Schedule Diagnoses Dermatology office Outpatient Referral Routine Ex pected: visit (clinic) 12/07/2018 (Approximate), Expires: 12/07/2020 documented as of this encounter Visit Diagnoses Diagnosis Screening Examination Skin Cancer - Prim brooke Dermatoheliosis Keratosis Seborrheic Nevi Multiple Melanoma Family History documented in this encounter Care Teams Epic Ambulatory Analyst Relationship Specialty Start Date End Date Nicole Andrade M.D., PCP - General Internal Medicine 09/03/10 02/01/18 M.H.A. [address] [place] [address] documented as of this encounter
--- OUTSIDE RECORDS SUMMARY | 2022-03-04 07:24 | XMS_ITS | Encounter Summary ---
:1955 Author Organization [facility] Address [address] [place] [address] Care Team Providers Name Role Phone Elsewhere, Pcp Primary Care Provider Unavailable Encounter Details Date Type Department Care Team Description 05/17/2020 Virtual Visit Division of General Vikas Francois COV ID-19 Infection Internal Medicine in [place] (Primary Dx) [place], [place] [address] [place] [phone] Social History Tobacco Use Types Packs/Day Years [...] or relatives? How often do you attend sabianism or More than 4 times per year 02/19/2022 taoist services? Do you belong to any clubs or Yes 02/19/2022 organizations such as sabianism groups, unions, fraternal or athletic groups, or [...] place to sleep or slept in a mcc (including now)? Education Answer Date Recorded What is the highest level of Professional school degree (e.g ., , 01/06/2019 school you have completed or the DDS, DVM, NAHED) highest degree you have received? Sex Assigned at Date Recorded Male 12/02/2017 10:04 PM CDT documented as of this encounter Progress Notes Vikas Francois D.O. - 05/17/2020 7:03 PM CST Images from the original note were not included. PORTAL COMMUNICATION NOTE This was a telephone notification to Mr. Anderson to notify them that their PCR test for SARS-CoV-2 (the virus that causes COVID-19) has returned positive. Currently Mr. Anderson has the following symptoms:myalgia(hoarseness) Date of symptom onset: 05/14/20 Since onset, symptoms have improved. Mr. Anderson has the following risk factors for severe infection: Risk Factors for Severe Infection w/ COVID-19 Current as of 2 hours ago 2 0 - 2 Points: Low Risk 3 - 5 Points: Medium Risk >= 6 Points: High Risk The previous score was 1 on 09/19/2019.: Last Change: Details Returns the total points for all positive risk factors for severe infection with COVID-19 Points Metrics 1 Age: 65 Current as of 2 hours ago 1 Sex: Male Current as of 2 hours ago 0 Has Hypertension: No Current as of 2 hours ago 0 Has Congestive Heart Failure: No Current as of 2 hours ago 0 Has Congenital Heart Disease: No Current as of 2 hours ago 0 Has Coronary Artery Disease: No Current as of 2 hours ago 0 Has Chronic Lung Disease or Asthma: No Current as of 2 hours ago 0 Has Diabetes: No Current as of 2 hours ago 0 Patient is Immune Compromised: No Current as of 2 hours ago 0 Care Home Patient: No Current as of 2 hours ago 0 COVID-19 Component - End State Renal Disease: 0 Current as of 2 hours ago 0 Chronic Liver Disease Registry: No Current as of 2 hours ago 0 : No Current as of 2 hours ago Mr. Anderson has been in the following facilities in the last 14 days: Medical clinic Facility(s) name: [place] [facility] with [facility]: Employee Last date at work/school: 05/09/20 Additional household members: 1;Some are sick without known COVID PROBLEM LIST Patient Active Problem List Diagnosis ??? Detachment Vitreous Posterior Right ??? Pinguecula Bilateral RESULTS Microbiology Results (last 10 days) Procedure Component Value - Date/Time SARS Coronavirus-2 RNA, V Symptomatic [[id number]] (Abnormal) Collected: 05/16/20 1612 Lab Status: Final result Specimen: Varies from Nasopharynx Updated: 05/17/20 1650 SARS-CoV-2 Specimen Source Swab, Nasopharynx SARS CoV-2 RNA, TMA Detected Comment: SARS-CoV-2 RNA present. ----ADDITIONAL INFORMATION---- This test is performed using the Aptima SARS-CoV-2 assay ([employer] which has received Emergency Use Authorization (EUA) by the U.S. Food and Drug Administration. Fact sheets for this Emergency Use Authorization (EUA) assay can be found at the following links: For Healthcare Providers: https://www.fda.gov/media/377322/download For Patients: https://www.fda.gov/media/103104/download ASSESSMENT/PLAN #1 COVID-19 disease Upcoming ftmf-hz-iiom appointments: no. Recommendations: Day 0 for release from isolation is: 05/14/20. Very Low Risk. Patient will not be enrolled in CFCT. Patient should follow up with their primary care provider or local public health system. Self-isolation: at least 10 days from symptom onset with at least 72 hours of symptom improvement and fever resolution w/o use of anti-pyretics (Tylenol, NSAIDs) Patient is not interested in learning about COVID experimental therapies Mr. Anderson was advised to continue to monitor their symptoms including dyspnea, chest pain, cough, fevers, lightheadedness/dizziness and vomiting/diarrhea. If symptoms are worsening, please contact their primary care provider. If their primary care provider has questions, an eConsult with CFCT can be requested. ??? Worsened shortness of breath ??? New or worsening cough ??? New productive cough or cough with blood ??? New chest pain or pain with breathing ??? Fevers, chills, sweats ??? Vomiting or diarrhea ??? Lightheadedness ? ? New temperature > 38.3 ??C ??? Fast heart rate ??? Fast breathing rate o If directed to the Emergency Room or other care facility, the patient was reminded to - Inform EMS of positive COVID result and wear a mask prior to EMS arrival if available. - If patient is well enough to transport themselves to the emergency room, they should drive themselves (not use taxi, ride-share or public transport). ??? We strongly recommend continuing self-isolation until advised otherwise. o Mr. Anderson is aware that they need to: - Remain at home unless requiring medical care - Separate themselves from other people in the home - Avoid sharing personal household items - Clean and disinfect 'high-touch' surfaces daily - Wear a facemask when around other people and cover coughs/sneezes - Practice good hand hygiene - Avoid touching your eyes, nose, and mouth ??? Self-isolation should be continued until the following criteria are met: ??? Minimum isolation as specified above o AND ??? At least 3 days (72 hours) have passed since recovery defined as resolution of fever without theuse of fever-reducing medications o AND ??? Improvement in symptoms (e.g., cough, shortness of breath, diarrhea) o The above isolation recommendation may need to be adjusted based on the clinical course. - https://www.[employer].com/watch?time_continue=6&v=VuZC2tHxWXh&feature=emb_logo o Testing prior to release from isolation is NOT recommended by CDC or [facility] Infection Prevention and Control for clinical purposes except in extremely rare cases. o The patient was also advised to follow final recommendations as per local public health department/occupational health if relevant. ??? Advised to contact their employer's occupational health division to notify them of positive test o If the patient and/or their employer have questions about return to work best practices, they should contact [facility] Occupational Medicine at [email or web address]. o The patient should receive approval from their employer's occupational health division before returning to work. ??? Recommend self isolation for all household members/close contacts. o If any of these individuals are immunocompromised or have serious chronic medical conditions, please have them contact their primary care physician to let them know they have been exposed to close contact with COVID-19 o If unwell, recommend contacting their health care provider. Presenting directly to of the ED can be considered in the case of severe symptoms. o These individuals should call ahead to minimize wait times. The [facility] COVID Triage Line can be reached at [phone]. ??? Mr. Anderson was advised that COVID-19 is a notifiable disease and that they will be contacted by [employer] for contact tracing. ??? Please review the links below for additional education. o What to do now that you that you know you have COVID-19 - https://www.health.[facility].pa./diseases/coronavirus/materials/videos.html - https://www.cdc.gov/coronavirus/2019-ncov/downloads/smqo-wddq-9456-cfwp-gdny-wyr et.pdf - https://www.cdc.gov/coronavirus/2019-ncov/ax-pyz-emn-sick/sjvyq-hdwa-peqz.html o Additional information about COVID-19 - https://www.cdc.gov/coronavirus/2019-ncov/ o Cognitive Behavior Therapy-Insomnia to help improve sleep - https://mccnmcontent.[place].edu/PatientEducation/PatientLearning/index.html#/ o Building Resiliency During the COVID-19 Pandemic - https://[facility] medical centercontent.[place].[facility]/2020/PatientEducation/content/index.html#/ ??? Consider donating convalescent plasma once you have recovered from your illness (14 days after symptoms have resolved) o Survey to assess eligibility: https://redcap2.[place].edu/redcap/surveys/?s=0YYY7GLE4Y and/ or contact convalescent.plasma@[place] o More information is available at - https://www.covidplasma.org/ - https://ccpp19.org/ - https://covidplasma.org/ This note is being cc'ed to the patient's primary care physician for their situational awareness only. The COVID-19 Frontline Care Team will follow up on next steps related to the COVID-19 infection. From a [facility] employee exposure standpoint if Mr. Anderson was seen in person: No additional action needed if contact with the patient occurred while either: ??? Staff and patient were both wearing face masks OR ??? Staff were wearing face masks and eye protection If there is concern for staff exposure due to individual PPE breach, please touch base with Occupational Health. Vikas Francois D.O. COVID-19 Frontline Care Team [facility] This was a virtual visit. The patient was not seen face to face because of COVID-19. 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
--- OUTSIDE RECORDS SUMMARY | 2022-03-04 07:24 | XMS_ITS | Encounter Summary ---
:1955 Author Organization [facility] Address [address] [place] [address] Care Team Providers Name Role Phone Nicole Andrade M.D., M.H.A. Primary Care Provider [phone] Encounter Details Date Type Department Care Team Description 10/15/2011 Hospital Encounter HX [facility] Fredrick Daley M.D. [address] [place] [phone] (Wo rk) Social History Tobacco Use Types [...] or relatives? How often do you attend hindu or More than 4 times per year 02/19/2022 episcopalian services? Do you belong to any clubs or Yes 02/19/2022 organizations such as hindu groups, unions, fraternal or athletic groups, or [...] chewable Chew 1 tablet daily. 0 tablet DOCOSAHEXANOIC ACID/EPA Take 2 capsules by 0 09/01 (FISH OIL ORAL) mouth daily. Contains 500 mg Virgil-3 Fatty acids per capsule Take with meals multivitamin tablet Take 1 tablet by 0 09/16/2010 mouth daily. documented as of this encounter Miscellaneous Notes Miscellaneous - Francisco Daley M.D. - 10/20/2011 8:10 AM CDT Results Notification Document Contains Addenda Addendum by TRISTEN NESS on 21 October 2011 18:15:53 CDT patient reviewed these labs with his primary in [place]. Addendum by TRISTEN NESS on 20 October 2011 11:00:44 CDT left message for patient to call back. From: FRANCISCO DALEY MD To: ALTON PIMENTEL LPN Sent: 10/20/2011 08:10:23 CDT ! Show up: 10/20/2011 13:10:23 [facility] Subject: Results Notification Actions: Note to Nurse Source: [facility] POWERCHART Document Id: [id number] documented in this encounter Plan of Treatment Not on filedocumented as of this encounter Procedures Procedure Name Priority Date/Time Associated Comments Diagnosis LIPID PANEL, S Routine 10/15/2011 7:25 Results fo r this AM CDT procedure are i n the results section. ASPARTATE Routine 10/15/2011 7:25 Results for this AMINOTRANSFERASE (AST), AM CDT proc edure are in S/P the results section. CREATININE WITH EGFR, Routine 10/15/2011 7:25 Res ults for this S/P AM CDT procedure are i n the results section. documented in this encounter Results (ABNORMAL) Lipid Panel (10/15/2011 7:25 AM CDT) athologist Signature Cholesterol, 204 (H) 0 - 200 POWERCHART Total MGDL Comment: <200 mg/dL Desirable 200-239 mg/dL Borderline High >239 mg/dL High HX HDL 54 35 - 60 MGDL POWERCHART Comment: > 60 mg/dL Desirable 40 ? 60 mg/dL Low Risk <40 mg/dL Undesirable Triglycerides 69 9 - 150 MGDL POWERCHART Comment: <150 mg/dL Desirable 150-199 mg/dL Borderline High 200-499 mg/dL High > 499 Very High Calculated LDL 136 (H) 100 - 129 MGDL POWERCHART Total Cholesterol/HDL Ratio 4 PO WERCHART Specimen (Source) Anatomical Collection Method Collection Time Re ceived Time Location / / Volume Laterality Blood 10/15/2011 7:25 AM CDT Francisco Daley M.D. LAB BLOOD ADD-ON Performing Organization Address City/State/ZIP Code Phon e Number POWERCHART AST (Aspartate Aminotransferase) (10/15/2011 7:25 AM CDT) [facility] gist Method Time Signature Aspartate 16 12 - 31 POWERCHART Aminotransferase UL (AST), S Specimen (Source) Anatomical Collection Method Collection Time Re ceived Time Location / / Volume Laterality Blood 10/15/2011 7:25 AM CDT Francisco Daley M.D. LAB BLOOD ADD-ON Performing Organization Address City/State/ZIP Code Phon e Number POWERCHART (ABNORMAL) Creatinine with eGFR (10/15/2011 7:25 AM CDT) athologist Signature Creatinine 0.95 0.60 - POWERCHART 1.30 MGDL HXeGFR (MDRD) >60 (H) <=61 POWERCHART [id number] Comment: A GFR of <60 mL/min is indicative of chr onic kidney disease. (MDRD calculation valid on patients 18 - 70 years.) eGFR Black/ >60 MLMIN PO WERCHART Specimen (Source) Anatomical Collection Method Collection Time Re ceived Time Location / / Volume Laterality Blood 10/15/2011 7:25 AM CDT Francisco Daley M.D. LAB BLOOD ADD-ON Performing Organization Address City/State/ZIP Code Phon e Number POWERCHART documented in this encounter Visit Diagnoses Not on filedocumented in this encounter Care Teams Spray Painting Machine Operator Relationship Specialty Start Date End Date Nicole Andrade M.D., PCP - General Internal Medicine 09/03/10 02/01/18 M.H.A. [address] [place] [phone] documented as of this encounter
--- OUTSIDE RECORDS SUMMARY | 2022-03-04 07:24 | XMS_ITS | Encounter Summary ---
:1955 Author Organization [facility] Address [address] [place] [address] Care Team Providers Name Role Phone Elsewhere, Pcp Primary Care Provider Unavailable Reason for Referral Specialty Diagnoses / Procedures Referred By Contact Refer red To Contact Saskia Ardon M.D. [facility] [address] [place] [phone] Referral ID Status Reason Start Date Expiration Date Visits Requ ested Visits Authorized DISPATCHER Encounter Details Date Type Department Care Team Description 06/26/[address] [facility] anson Ardon M.D. [address] [place], [place] [phone] (Wo rk) Social History Tobacco Use Types [...] or relatives? How often do you attend caodaism or More than 4 times per year 02/19/2022 samaritan services? Do you belong to any clubs or Yes 02/19/2022 organizations such as caodaism groups, unions, fraternal or athletic groups, or [...] Name Type Priority Associated Order Schedule Diagnoses Covid immunization Outpatient Referral Routine Ex pected: office visit Initial 020 (Approximate), Expires: 06/26/2021 documented as of this encounter Visit Diagnoses Not on filedocumented in this encounter Care Teams Street Light Servicer Relationship Specialty Start Date End Date Elsewhere, Pcp PCP - General Internal Medicine 01/03/20 documented as of this encounter
--- OUTSIDE RECORDS SUMMARY | 2022-03-04 07:24 | XMS_ITS | Encounter Summary ---
:1955 Author Organization [facility] Address [address] [place] [address] Care Team Providers Name Role Phone Elsewhere, Pcp Primary Care Provider Unavailable Reason for Referral Outpatient (Routine) - Closed Specialty Diagnoses / Procedures Referred By Contact Refer red To Contact Dermatology Diagnoses Nevi Multiple Danna Tom M.D. [facility] Procedures Dermatology misc minor procedure [address] [place] [phone] Referral ID Status Reason Start Date Expiration Date Visits Requ ested Visits Authorized [id number] Closed 11/04/2020 11/04/2021 1 1 Reason for Visit Outpatient (Routine) - Closed Specialty Diagnoses / Procedures Referred By Contact Refer red To Contact Dermatology Thuy Peña APRN, [facility] C.N.P., D.N.P., M.S. N. [address] [place] [phone] Referral ID Status Reason Start Date Expiration Date Visits Requ ested Visits Authorized [id number] Closed 01/10/2019 01/10/2020 1 1 Encounter Details Date Type Department Care Team Description 11/04/2020 Office Visit Department of Danna Tom Nevi Multi ple (Primary Dx); [place]atology [place], [place] [address] [phone] Social History Tobacco Use Types Packs/Day Years [...] or relatives? How often do you attend temple or More than 4 times per year 02/19/2022 restorationism services? Do you belong to any clubs or Yes 02/19/2022 organizations such as temple groups, unions, fraternal or athletic groups, or [...] place to sleep or slept in a long term (including now)? Education Answer Date Recorded What is the highest level of Professional school degree (e.g ., , 01/06/2019 school you have completed or the DDS, DVM, NAHED) highest degree you have received? Sex Assigned at Date Recorded Male 12/02/2017 10:04 PM CDT documented as of this encounter Progress Notes Danna Tom M.D. - 11/04/2020 4:15 PM CDT SUBJECTIVE CHIEF COMPLAINT / REASON FOR VISIT Skin cancer recheck HISTORY OF PRESENT ILLNESS Mr. Ady Oseguera MD Monica is a 65 y.o. male who presents today for a full skin cancer screening examination. This is my first time seeing this patient in Dermatology clinic today. She was last seen by Thuy Peña in 2019. 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 Casiano at [facility]. The patient denies a personal history for melanoma. His father does have a history of melanoma. He reports regular use of sunscreen. No areas of concern today. Allergies Allergen Reactions ??? Benazepril Cough ??? Vancomycin Itching MEDICAL HISTORY 1. Right mormon: Nodular basal cell carcinoma, status post Mohs surgery on 11/30/[address] Casiano at [facility] FAMILY HISTORY Father with history of melanoma OBJECTIVE PHYSICAL EXAMINATION General: Awake, alert, in no acute distress, and with appropriate affect. Eyes: No scleral injection or icterus. No eyelid abnormalities. Lymph: No lower extremity edema. Skin: I have examined the scalp, face, neck, chest, abdomen, back, bilateral upper extremities, and bilateral lower extremities. Examination of the right mormon/right upper forehead reveals a Mohs surgery scar with no clinical evidence for local recurrence of bcc. Examination reveals one milia involving the right lateral infraorbital. Examination of face, trunk, and extremities reveals multiple benign appearing nevi and lentigines, and multiple SKs. Examination of the right posterior forearm reveals a 1.5 x 1 mm brown nevus with slight irregular pigmentation. Examination of the plantar aspect of the right big toe reveals a 5 x 4 mm uniformly pigmented brown nevus which looks benign on clinical exam and dermoscopy. Examination of the upper central sternum reveals a 7 x 3 mm brown macule with slight irregular browncoloration and milia on dermoscopy and most likely represents a pigmented SK. Examination of the chest and back reveals multiple smalls angiomas. ASSESSMENT / PLAN #1 Right mormon: Nodular basal cell carcinoma, status post Mohs surgery on 11/30/[address] Csaiano at [facility], no recurrence Examination today reveals no clinical evidence of recurrence of non-melanoma skin cancer. Follow up immediately if changes are noticed during monthly self examination. Otherwise followup in 6-12 months. #2 Right posterior forearm: Rule out atypical nevus Photographs taken today. The patient will make a follow up appointment and return to the procedure clinic for a 3 mm punch biopsy. #3 Upper central sternum: Probable pigmented SK, doubt atypical nevus Photographs taken today. The patient will make a follow up appointment and return to the procedure clinic for a shave biopsy. Discussed observation vs removal with punch vs shave biopsy and pros and cons. After discussion, he would prefer removal after he returns from his vacation next week with shavebiopsy. He does understand that there is a slight risk for hypertrophic scar or keloid given location and subsequently both myself and he prefer a shave biopsy. #4Face, trunk, and extremities: Multiple benign appearing nevi and lentigines The ABCDE criteria for melanoma was reviewed with the patient. None of the patient's nevi reach the clinical threshold for biopsy. I recommend continued sun protection, self-skin examinations, and observation. Should any of the patient's nevi change in size, color, texture, or shape or develop symptoms such as itching or bleeding, I recommend an immediate return visit for reassessment. #5 Face, trunk, and extremities: Seborrheic keratosis The benign nature of the skin lesion(s) was discussed with the patient. No treatment is required. I recommend continued observation. Should symptoms or changes develop related to this condition, I would recommend a return visit for reassessment. PATIENT EDUCATION: Ready to learn. No apparent [...] Danna Tom M.D. documented in this encounter Plan of Treatment Scheduled Orders Name Type Priority Associated Diagnoses Order S chedule Dermatology misc minor Dermatology Routine Nevi Multiple Expe cted: 12/09/2020 procedure (Approximate), Expires: 2023 documented as of this encounter Visit Diagnoses Diagnosis Nevi Multiple - Primary Keratosis Seborrheic documented in this encounter Care Teams Military Pay Clerk Relationship Specialty Start Date End Date Elsewhere, Pcp PCP - General Internal Medicine 01/03/20 documented as of this encounter
--- OUTSIDE RECORDS SUMMARY | 2022-03-04 07:24 | XMS_ITS | Encounter Summary ---
:1955 Author Organization [facility] Address [address] [place] [address] Care Team Providers Name Role Phone Elsewhere, Pcp Primary Care Provider Unavailable Reason for Referral Outpatient (Routine) - Closed Specialty Diagnoses / Procedures Referred By Contact Refer red To Contact Dermatology Thuy Peña APRN, [facility] C.N.P., D.N.P., M.S. N. [address] [place] [address] [phone] Referral ID Status Reason Start Date Expiration Date Visits Requ ested Visits Authorized [id number] Closed 01/10/2019 01/10/2020 1 1 Reason for Visit Outpatient (Routine) - Closed Specialty Diagnoses / Procedures Referred By Contact Refer red To Contact Dermatology Traci Gaines APRN [facility] Tigre C.N.P., D.N.P. [address] [place] [phone] Referral ID Status Reason Start Date Expiration Date Visits Requ ested Visits Authorized [id number] Closed 12/07/2017 12/07/2018 1 1 Encounter Details Date Type Department Care Team Description 01/10/2019 Office Visit Department of Thuy Peña Cancer Skin Basal Cell Personal History (Primary Dx); Dermatology marlys Cartagena APRN C.N.PJared, Keratosis Seborrheic; [place], [place] Keyonna, M.S.N. Dermatoheliosis; [address] [facility] Angioma Clarke; [place], [place] [phone] Social History Tobacco Use Types Packs/Day Years [...] or relatives? How often do you attend quaker or More than 4 times per year 02/19/2022 alevism services? Do you belong to any clubs or Yes 02/19/2022 organizations such as quaker groups, unions, fraternal or athletic groups, or [...] documented as of this encounter Consult Notes Thuy Peña, ALUMNI RELATIONS COORDINATOR, C.NIris, M.S.N. - 01/10/2019 11:30 AM CDT CHIEF COMPLAINT / REASON FOR VISIT Supervised by: Dr. Ama Neumann ([phone]) Patient seen and discussed with supervising software developer consultant, Dr. Ama Neumann, who evaluated the patient and concurs with the assessment and plan. 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 The patient was last evaluated in the Department of Dermatology on 12/07/2017 by Traci Gaines CNP. 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 The patient reports no new or changing skin lesion. 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 Allergies Allergen Reactions ??? Benazepril Cough ??? Vancomycin Itching REVIEW OF SYSTEMS The patient feels well. Denies any weight loss, fevers or recent changes in his state of health. PAST MEDICAL HISTORY History of basal cell carcinoma involving the right christianity treated with Mohs surgery in 2013 FAMILY HISTORY Father: History of malignant melanoma on the foot PHYSICAL EXAM General: Awake, alert, in no acute distress, and with appropriate affect. Eyes: No scleral injection or icterus. No eyelid abnormalities. Cardio: No lower extremity edema. Skin: I have examined the scalp, face, neck, chest, abdomen, back, bilateral upper extremities, bilateral lower extremities, groin and buttocks per patient request. White skin type II, there is evidence of moderate dermatoheliosis in sun-exposed areas. Scattered across the trunk, bilateral upperand lower extremities are brown, well-defined, waxy, stuck on appearing , papule and plaques consistent with seborrheic keratosis. Scattered throughout the trunk, bilateral upper and lower extremities are red, dome-shaped, macules and papules, consistent with clarke angiomas. There are brown , benign appearing nevi on the trunk, bilateral upper and lower extremities. Involving the right christianity is a we ll healed surgical scar without evidence of nodularity or recurrence. ASSESSMENT / PLAN #1 History of basal cell carcinoma involving the right christianity , no evidence of reccurence #2 Dermatoheliosis No worrisome findings for skin cancer today. Sun protection and sun avoidance were reviewed with thepatient. Educational materials were provided regarding skin self-examination, the warning signs and symptoms of skin cancer, and the proper use of sunscreens. I would recommend a full skin cancer screening examination with an appropriately trained clinician every year. #3 Banal-appearing nevi The ABCDE criteria for melanoma was [...] reassessment. #4 Seborrheic keratoses #5 Clarke angiomas The benign nature of the skin lesion(s) was discussed with the patient. No treatment is required. I recommend continued observation. Should symptoms or changes develop related to this condition, I would recommend a return visit for reassessment. All questions answered. PATIENT EDUCATION Ready to learn. No apparent learning barriers were identified. Learning preferences include listening. Explained diagnosis and treatment plan; patient/guardian of patient expressed understanding of thecontent. documented in this encounter Plan of Treatment Scheduled Referrals Name Type Priority Associated Order Schedule Diagnoses Dermatology office Outpatient Referral Routine Ex pected: visit (clinic) 01/11/2020 (Approximate), Expires: 01/10/2022 documented as of this encounter Visit Diagnoses Diagnosis Cancer Skin Basal Cell Personal History - Primary Keratosis Seborrheic Dermatoheliosis Angioma Clarke Nevi Multiple documented in this encounter Care Teams Agricultural Education Instructor Relationship Specialty Start Date End Date Elsewhere, Pcp PCP - General Family Medicine 02/02/18 01/02/20 documented as of this encounter
--- OUTSIDE RECORDS SUMMARY | 2022-03-04 07:24 | XMS_ITS | Encounter Summary ---
:1955 Author Organization [facility] Address [address] [place] [address] Care Team Providers Name Role Phone Nicole Andrade M.D., M.H.A. Primary Care Provider Encounter Details Date Type Department Care Team Description 08/21/2011 - 08/23/2011 Hospital Encounter HX [facility] 6B Social History Tobacco Use Types Packs/Day Years [...] More than 4 times per year 02/19/2022 denominational services? Do you belong to any clubs [...] or slept in a custodial (including now)? Sex Assigned at Date Recorded Male 12/02/2017 10:04 PM CDT documented as of this encounter Last Filed Vital Signs Vital Sign Reading Time Taken Comments Blood Pressure 152/79 08/23/2011 6:20 AM BOATHOUSE KEEPER Pulse 65 08/23/2011 6:20 AM BOATHOUSE KEEPER Temperature - - Respiratory Rate 12 08/23/2011 6:20 AM BOATHOUSE KEEPER Oxygen Saturation - - Inhaled Oxygen Concentration - - Weight 76.6 kg (168 lb 14 oz) 08/23/2011 6:20 AM BOATHOUSE KEEPER Height 170 cm (5' 6.93) 08/21/2011 7:02 PM BOATHOUSE KEEPER Body Mass Index 26.51 08/21/2011 7:02 PM BOATHOUSE KEEPER documented in this encounter Medications at Time of Discharge Medication Sig Dispensed Refills Start Date End Date aspirin 81 mg chewable Chew 1 tablet daily. 0 tablet DOCOSAHEXANOIC ACID/EPA Take 2 capsules by 0 09/01 (FISH OIL ORAL) mouth daily. Contains 500 mg Bristow-3 Fatty acids per capsule Take with meals multivitamin tablet Take 1 tablet by 0 09/16/2010 mouth daily. documented as of this encounter Plan of Treatment Not on filedocumented as of this encounter Procedures Procedure Name Priority Date/Time Associated Comments Diagnosis ELECTROLYTE (CHEM 4) Routine 08/22/2011 8:22 AM R esults for this PANEL, S/P BOATHOUSE KEEPER procedure are i n the results section. CBC WITHOUT Routine 08/22/2011 8:22 AM Results f or this DIFFERENTIAL, B BOATHOUSE KEEPER procedure ar e in the results section. documented in this encounter Results CBC without Differential (08/22/2011 8:22 AM BOATHOUSE KEEPER) [facility] Method Time Signature Hemoglobin 14.8 13.5 - [facility] 17.5 G/DL LAB[facility] - [facility] Hematocrit 41.9 38.8 - [facility] 50.0 % [facility] RBC Distrib Width 12.6 11.8 - [facility] 15.6 % [facility] Platelet Count 191 150 - 450 [facility] X10(9)/L [facility] Erythrocytes 4.89 4.32 - [facility] 5.72 LABORATORIES - X10(12)/L [facility] MCV 85.7 81.2 - [facility] 95.1 [place] [facility] - [facility] Leukocytes 5.4 3.5 - [facility] 10.5 LABORATORIES - X10(9)/L [facility] Specimen Anatomical Collection Method Collection Time Receive d Time (Source) Location / / Volume Laterality 08/22/2011 8:22 AM 2 8:22 BOATHOUSE KEEPER AM BOATHOUSE KEEPER Historical Provider LAB BLOOD ADD-ON Performing Organization Address City/[facility] Code Phon e Number [facility]ATORIES - [address] [place] [id number] [facility] Electrolyte (Chem 4) Panel (08/22/2011 8:22 AM BOATHOUSE KEEPER) Analysis Performed At [facility] logis Time Signature Sodium, S 140 135 - 145 [facility] MMOL/L [facility] Potassium, S 4.0 3.6 - 5.2 [facility] MMOL/L [facility] - [facility] Creatinine 1.0 0.8 - 1.3 [facility] MG/DL [facility] eGFR >60 >60 [facility] Non-Black/Afric ML/MIN/BSA LABORATORIES - an Northern Irish [facility] Anion Gap 9 7 - 15 [facility] - [facility] Glucose, S 88 70 - 140 [facility] MG/DL [facility] Chloride, S 106 100 - 108 [facility] MMOL/L [facility] - [facility] HX Bicarbonate, 25 22 - 29 [facility] P/S MMOL/L [facility] eGFR-Black/Afri >60 >60 [facility] can Northern Irish ML/MIN/BSA [facility] - [facility] BUN (Blood Urea 16 8 - 24 [facility] Nitrogen), S MG/DL [facility] Specimen Anatomical Collection Method Collection Time Receive d Time (Source) Location / / Volume Laterality 08/22/2011 8:22 AM 2 8:22 BOATHOUSE KEEPER AM BOATHOUSE KEEPER Historical Provider LAB BLOOD ADD-ON Performing Organization Address City/[facility]/ZIP Code Phon e Number [facility] LABORATORIES - [address] [place], [place] [address] [facility] documented in this encounter Visit Diagnoses Not on filedocumented in this encounter Care Teams Marking Stitcher Relationship Specialty Start Date End Date Nicole Andrade M.D., PCP - General Internal Medicine 09/03/10 02/01/18 [place] [address] [place] [phone] documented as of this encounter
--- OUTSIDE RECORDS SUMMARY | 2022-03-04 07:24 | XMS_ITS | Encounter Summary ---
:1955 Author Organization [facility] Address [address] [place] [address] Care Team Providers Name Role Phone Elsewhere, [...] or relatives? How often do you attend holiness or More than 4 times per year 02/19/2022 catholic services? Do you belong to any clubs or Yes 02/19/2022 organizations such as holiness groups, unions, fraternal or athletic groups, or [...] place to sleep or slept in a long-term (including now)? Education Answer Date Recorded What [...] results section. documented in this encounter Results upper extremity, right posterior forearm 310-Dermatology Image Exam (11/04/2020 4:46 PM CDT) Specimen [...] on filedocumented in this encounter Care Teams Automation Developer Relationship Specialty Start Date End Date Elsewhere, Pcp PCP - General Internal Medicine 01/03/20 documented as of this encounter
--- OUTSIDE RECORDS SUMMARY | 2022-03-04 07:24 | XMS_ITS | Encounter Summary ---
:1955 Author Organization [facility] Address [address] [place] [address] Care Team Providers Name Role Phone Nicole Andrade M.D., M.H.A. Primary Care Provider [phone] Encounter Details Date Type Department Care Team Description 10/26/2012 Hospital Encounter HX [facility] Carrie Ryan P.A.-C. [address] [place] [address] [phone] (Wo rk) Social History Tobacco Use Types [...] or relatives? How often do you attend zoroastrian or More than 4 times per year 02/19/2022 confucianist services? Do you belong to any clubs or Yes 02/19/2022 organizations such as zoroastrian groups, unions, fraternal or athletic groups, or [...] OIL ORAL) mouth daily. Contains 500 mg Bledsoe-3 Fatty acids per capsule Take with meals multivitamin tablet Take 1 tablet by 0 09/16/2010 mouth daily. documented as of this encounter Plan of Treatment Not on filedocumented as of this encounter Procedures Procedure Name Priority Date/Time Associated Diagnosis Comme nts LIPID PANEL, S Routine 10/26/2012 7:19 AM Results for this CDT procedure are i n the results section . documented in this encounter Results (ABNORMAL) Lipid Panel (10/26/2012 7:19 AM CDT) P athologist Signature Cholesterol, 238 (H) 0 - 200 POWERCHART Total MGDL Comment: <200 mg/dL Desirable 200-239 mg/dL Borderline High >239 mg/dL High HX HDL 56 35 - 60 MGDL POWERCHART Comment: > 60 mg/dL Desirable 40 ? 60 mg/dL Low Risk <40 mg/dL Undesirable Triglycerides 117 9 - 150 MGDL POWERCHART Comment: <150 mg/dL Desirable 150-199 mg/dL Borderline High 200-499 mg/dL High > 499 Very High Calculated LDL 159 (H) 100 - 129 MGDL POWERCHART Total Cholesterol/HDL Ratio 4 PO WERCHART Specimen (Source) Anatomical Collection Method Collection Time Re ceived Time Location / / Volume Laterality Blood 10/26/2012 7:19 AM CDT Carrie Ryan P.A.-C. LAB BLOOD ADD-ON Performing Organization Address City/State/ZIP Code Phon e Number POWERCHART documented in this encounter Visit Diagnoses Not on filedocumented in this encounter Care Teams Assembler For Puller Over Machine Relationship Specialty Start Date End Date Nicole Andrade M.D., PCP - General Internal Medicine 09/03/10 02/01/18 M.H.A. [address] [place] [phone] documented as of this encounter
--- OUTSIDE RECORDS SUMMARY | 2022-03-04 07:25 | XMS_ITS | Encounter Summary ---
:1955 Author Organization [facility] Address [address] [place] [address] Care Team Providers Name Role Phone Nicole Andrade M.D., M.H.A. Primary Care Provider Encounter Details Date Type Department Care Team Description 08/21/2011 Hospital Encounter HX NO MAPPING Social History [...] More than 4 times per year 02/19/2022 buddhism services? Do you belong to any clubs [...] to sleep or slept in a senior living (including now)? Sex Assigned at Date Recorded Male 12/02/2017 10:04 PM CDT documented as of this encounter Medications at Time of Discharge Medication Sig Dispensed Refills Start Date End Date aspirin 81 mg chewable Chew 1 tablet daily. 0 tablet DOCOSAHEXANOIC ACID/EPA Take 2 capsules by 0 09/01 (FISH OIL ORAL) mouth daily. Contains 500 mg [place]-3 Fatty acids per capsule Take with meals multivitamin tablet Take 1 tablet by 0 09/16/2010 mouth daily. documented as of this encounter Plan of Treatment Not on filedocumented as of this encounter Procedures Procedure Name Priority Date/Time Associated Comments Diagnosis HX MICROBIOLOGY Routine 08/21/2011 5:12 PM Result s for this REPORTS NAIL SETTER procedure are i n the results section. HX MICROBIOLOGY Routine 08/21/2011 5:06 PM Result s for this REPORTS NAIL SETTER procedure are i n the results section. ELECTROLYTE (CHEM 4) Routine 08/21/2011 5:06 PM R esults for this PANEL, S/P NAIL SETTER procedure are i n the results section. CBC WITH Routine 08/21/2011 5:06 PM Results f or this DIFFERENTIAL, B NAIL SETTER procedure ar e in the results section. HX MICROBIOLOGY Routine 08/21/2011 4:59 PM Result s for this REPORTS NAIL SETTER procedure are i n the results section. documented in this encounter Results Microbiology Reports (08/21/2011 5:12 PM NAIL SETTER) Specimen Anatomical Collection Method Collection Time Receive d Time (Source) Location / / Volume Laterality 08/21/2011 5:12 PM 2 5:13 NAIL SETTER PM NAIL SETTER Narrative [facility] - 08/26/2011 6:30 PM NAIL SETTER 21-AUG-2011 BLOOD, ? SoftOrd# [id number] ?(Specimen Collected 17:12; Received 21-AUG-2011 17:32) ? Dept Lab Med Path ?BACTERIA/KENNY CULTURE, BLOOD ? (Reported 26-AUG-2011 18:30) FINAL ?No growth after 5 days of in cubation. Procedure Note 10/12/2017 21-AUG-2011 BLOOD, SoftOrd# [id number] (Specimen Collected 21-AUG-2011 17:12; Received 21-AUG-2011 17:32) Dept Lab Med Path BACTERIA/KENNY CULTURE, BLOOD (Repor monique 26-AUG-2011 18:30) FINAL No growth after 5 days of incubation. Paris Nichols M.D. LAB MICROBIOLOGY - GENERAL O RDERABLES Performing Organization Address City/State/ZIP Code Phon e Number [facility] - [address] [place], [place] [address] [facility] Microbiology Reports (08/21/2011 5:06 PM NAIL SETTER) Specimen Anatomical Collection Method Collection Time Receive d Time (Source) Location / / Volume Laterality 08/21/2011 5:06 PM 2 5:07 NAIL SETTER PM NAIL SETTER Narrative [facility] - 08/26/2011 6:30 PM NAIL SETTER 21-AUG-2011 BLOOD, ? SoftOrd# [id number] ?(Specimen Collected 17:06; Received 21-AUG-2011 17:29) ? Dept Lab Med Path ?BACTERIA/KENNY CULTURE, BLOOD ? (Reported 26-AUG-2011 18:30) FINAL ?No growth after 5 days of in cubation. Procedure Note 10/12/2017 21-AUG-2011 BLOOD, SoftOrd# [id number] (Specimen Collected 21-AUG-2011 17:06; Received 21-AUG-2011 17:29) Dept Lab Med Path BACTERIA/KENNY CULTURE, BLOOD (Repor monique 26-AUG-2011 18:30) FINAL No growth after 5 days of incubation. Paris Nichols M.D. LAB MICROBIOLOGY - GENERAL O RDERABLES Performing Organization Address City/State/ZIP Code Phon e Number [facility] - [address] [place], [place] [address] [facility] CBC with Differential (08/21/2011 5:06 PM NAIL SETTER) [facility] Method Time Signature Hemoglobin 16.0 13.5 - [facility] 17.5 G/DL LABORATORIES - [facility] Hematocrit 44.9 38.8 - [facility] 50.0 % LABORATORIES [facility] RBC Distrib Width 12.9 11.8 - [facility] 15.6 % LABORATORIES [facility] Platelet Count 229 150 - 450 [facility] X10(9)/L LABORATORIES [facility] Lymphocytes 1.23 0.90 - [facility] 2.90 LABORATORIES - X10(9)/L [facility] Monocytes 0.51 0.30 - [facility] 0.90 LABORATORIES - X10(9)/L [facility] Erythrocytes 5.33 4.32 - [facility] 5.72 LABORATORIES - X10(12)/L [facility] MCV 84.2 81.2 - [facility] 95.1 FL LABORATORIES - [facility] Leukocytes 5.7 3.5 - [facility] 10.5 LABORATORIES - X10(9)/L [facility] Neutrophils 3.78 1.70 - [facility] 7.00 LABORATORIES - X10(9)/L [facility] Eosinophils 0.12 0.05 - [facility] 0.50 LABORATORIES - X10(9)/L [facility] Basophils 0.03 0.00 - [facility] 0.30 LABORATORIES - X10(9)/L [facility] Specimen Anatomical Collection Method Collection Time Receive d Time (Source) Location / / Volume Laterality 08/21/2011 5:06 PM 2 5:06 NAIL SETTER PM NAIL SETTER Paris Nichols M.D. LAB BLOOD ADD-ON Performing Organization Address City/[facility]/ZIP Code Phon e Number [facility] - [address] [place] [address] [facility] Electrolyte (Chem 4) Panel (08/21/2011 5:06 PM NAIL SETTER) Analysis Performed At Patho logist Time Signature Sodium, P 139 135 - 145 [facility] MMOL/L LABORATORIES - [facility] Potassium, P 3.8 3.6 - 5.2 [facility] MMOL/L LABORATORIES - [facility] HX Bicarbonate, 27 22 - 29 [facility] P/S MMOL/L LABORATORIES - [facility] Glucose, S 98 70 - 140 [facility] MG/DL LABORATORIES - [facility] Creatinine 1.0 0.8 - 1.3 [facility] MG/DL LABORATORIES - [facility] eGFR >60 >60 [facility] Non-Black/Afric ML/MIN/BSA LABORATORIES - an [place] [facility] eGFR-Black/Afri >60 >60 [facility] can [place]enegrin ML/MIN/BSA LABORATORIES - [facility] Chloride, S 103 100 - 108 [facility] MMOL/L LABORATORIES - [facility] BUN (Blood Urea 18 8 - 24 [facility] Nitrogen), S MG/DL LABORATORIES - [facility] Specimen Anatomical Collection Method Collection Time Receive d Time (Source) Location / / Volume Laterality 08/21/2011 5:06 PM 2 5:06 NAIL SETTER PM NAIL SETTER Paris Nichols M.D. LAB BLOOD ADD-ON Performing Organization Address City/State/ZIP Code Phon e Number [facility] - [address] [place], [place] [address] [facility] Microbiology Reports (08/21/2011 4:59 PM NAIL SETTER) Specimen Anatomical Collection Method Collection Time Receive d Time (Source) Location / / Volume Laterality 08/21/2011 4:59 PM 2 5:14 NAIL SETTER PM NAIL SETTER Narrative [facility]ATORIES - [facility] - 08/24/2011 2:58 PM NAIL SETTER 21-AUG-2011 TOE, SWAB RIGHT 5TH ?SoftOrd# [id number] ?(Specimen Collected 16:59; Received 21-AUG-2011 17:14) ? Dept Lab Med Path ?Bacterial aerobic susceptibi lities requested. ?GRAM STAIN ?(Reported 21-AUG-2011 18:22) FINAL ?No organisms seen. ?BACTERIAL, AEROBIC, CULTURE ? (Reported 24-AUG-2011 14:58) FINAL ?Usual loly ?STAPHYLOCOCCUS AUREUS ??1+ S=Susceptible;I=Intermediate;R=Resistant ;N=Not susceptible;D=Dose-dependent susceptible;Results in mcg/mL ?STAPHYLOCOCCUS AUREUS ?Oxacillin ? 1 S ?? Penicillin ? >8 R ??Cefazolin ? <=2 S ??Levofloxacin ?<=1 S ?Clindamycin ? <=0.5 S ??Min ocycline ? <=1 S ??TMP/SMX ?<=.5/9.5 S ??Vancomycin ?1 S ?Mupirocin ? <=256 S ??Ri fampin ?<=0.5 S ?Rifampin: Rifampin should not b e used as monotherapy Procedure Note 10/12/2017 21-AUG-2011 TOE, SWAB RIGHT 5TH SoftOrd # [id number] (Specimen Collected 21-AUG-2011 16:59; Received 21-AUG-2011 17:14) Dept Lab Med Path Bacterial aerobic susceptibilities requ ested. GRAM STAIN (Reported 21-AUG-2011 18:22 ) FINAL No organisms seen. BACTERIAL, AEROBIC, CULTURE (Reported 24-AUG-2011 14:58) FINAL Usual loly STAPHYLOCOCCUS AUREUS 1+ S=Susceptible;I=Intermediate;R=Resistant ;N=Not susceptible;D=Dose-dependent susceptible;Results in mcg/mL STAPHYLOCOCCUS AUREUS Oxacillin 1 S Penicillin >8 R Cefazolin <=2 S Levofloxacin <=1 S Clindamycin <=0.5 S Minocycline <=1 S T MP/SMX <=.5/9.5 S Vancomycin 1 S Mupirocin <=256 S Rifampin <=0.5 S Rifampin: Rifampin should not be used a s monotherapy Paris Nichols M.D. LAB MICROBIOLOGY - GENERAL O RDERABLES Performing Organization Address City/State/ZIP Code Phon e Number [facility] - [address] [place], [place] [address] [facility] documented in this encounter Visit Diagnoses Not on filedocumented in this encounter Care Teams Drawing In Machine Tender Helper Relationship Specialty Start Date End Date Nicole Andrade M.D., PCP - General Internal Medicine 09/03/10 02/01/18 M.H.A. [address] [place] [phone] documented as of this encounter
[2022-03-04 09:11] LABS: Albumin* 4.4 g/dL (3.3-5.0); Chloride* 103 mmol/L (96-114); Potassium* 4.5 mmol/L (3.6-5.1); Sodium* 139 mmol/L (135-149)
[2022-03-04 09:13] LABS: Cholesterol* 272 mg/dL (90-199); Estimated Glomerular Filt Rate 84 ml/min
[2022-03-04 09:14] LABS: Alanine Aminotransferase* 20 U/L (4-50); Alkaline Phosphatase* 62 U/L (40-150); Aspartate Amino Transferase* 27 U/L (12-35); Bilirubin Total* 0.9 mg/dL (0.1-1.5); Blood Urea Nitrogen* 22 mg/dL (7-30); Calcium* 9.4 mg/dL (8.4-10.6); Carbon Dioxide* 29 mmol/L (20-32); Glucose* 100 mg/dL (60-115); Total Protein* 7.1 g/dL (6.0-8.3); Triglycerides* 112 mg/dL (40-149)
[2022-03-04 09:15] LABS: HDL Cholesterol* 63 mg/dL (>=40); LDL Cholesterol Calculated 187 mg/dL (<100)
[2022-03-04 09:45] LABS: PSA Screen* 0.27 ng/mL (0.10-4.00)
== END 2022-03-04 13:15 | disposition home or self-care (01) ==
PROVIDERS: PCP Internal Medicine; Visit Provider Internal Medicine
DX: Z00.00 Encounter for general adult medical examination without abnormal findings (principal); I10 Essential (primary) hypertension; C44.310 Basal cell carcinoma of skin of unspecified parts of face; E78.9 Disorder of lipoprotein metabolism, unspecified
CPT/HCPCS: 80053; 80061; 84153

== ENCOUNTER 2022-03-11 07:15 | Outpatient (CLI) | payer MEDICARE, BC, SELFPAY ==
--- NOTE | 2022-03-11 07:15 | CRLHL7_ITS ---
For Patients: As a result of the Century Cures Act, medical imaging exams and procedure reports are released immediately into your electronic medical record. You may view this report before your referring provider. If you have questions, please contact your health care provider. Examination: US abdominal aorta Indication: Abdominal aortic aneurysm screening. Technique: Oliveira scale and color Doppler images of the aorta and common iliac arteries are obtained. Comparison: None Findings: Proximal aorta: 1.8 x 1.6 cm Mid aorta: 1.9 x 1.9 cm Distal aorta: 1.3 x 2.1 cm Right common iliac artery: 1.3 x 1.4 cm Left common iliac artery: 1.4 x 1.5 cm Impression: No evidence of abdominal aortic aneurysm. Dictated by Humberto Carmona MD @ 03/11/2022 9:02:27 AM (Electronically Signed)
--- OUTSIDE RECORDS SUMMARY | 2022-03-11 07:19 | XMS_ITS | Encounter Summary ---
:1955 Author Organization [facility] Address [address] [place] [address] Care Team Providers Name Role Phone Nicole Andrade M.D., M.H.A. Primary Care Provider [phone]- [phone] Reason for Referral Outpatient (Routine) - Closed Specialty Diagnoses / Procedures Referred By Contact Refer red To Contact Dermatology Traci Gaines APRN [facility] C.N.P., D.N.P. [address] [place] [address] Referral ID Status Reason Start Date Expiration Date Visits Requ ested Visits Authorized [id number] Closed 12/07/2017 12/07/2018 1 1 Scheduling Instructions [facility] Reason for Visit Appointment Request (Routine) - Closed Specialty Diagnoses / Procedures Referred By Contact Ann orosco To Contact Dermatology Referral ID Status Reason Start Date Expiration Date Visits Requ ested Visits Authorized [id number] Closed 12/01/2017 12/01/2018 1 1 Encounter Details Date Type Department Care Team Description 12/07/2017 Office Visit Department of Traci Gaines Examination Skin Cancer (Primary Dx); Dermatology in [facility], C.N.P., Dermatohe liosis; [place], [place] D.N.P. Keratosis Seborrheic; [address] [place] [address] Nevi Multiple; [place], [place] Melanoma Fami ly History [phone] Social History Tobacco Use Types Packs/Day Years [...] or relatives? How often do you attend samaritan or More than 4 times per year 02/19/2022 anabaptist services? Do you belong to any clubs or Yes 02/19/2022 organizations such as samaritan groups, unions, fraternal or athletic groups, or [...] place to sleep or slept in a fdc (including now)? Sex Assigned at Date Recorded Male 12/02/2017 10:04 PM CDT documented as of this encounter Consult Notes Traci Gaines APRN, C.N.P., D.N.P. - 12/07/2017 11:10 AM CDT CHIEF COMPLAINT / REASON FOR VISIT Skin cancer screening examination Supervised by: Dr. Ama Neumann ([phone]) Supervising content management consultant, Dr. Ama Neumann, was immediately available but consultation was not required. HISTORY OF PRESENT ILLNESS Dr. Anderson is a 62 y.o. male who presents today for a full skin cancer screening examination. 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 The patient has a history of a basal cell carcinoma on his right sikhism that was treated in 2013 with Mohs [...] MEDICAL HISTORY 1. Basal cell carcinoma, right sikhism in 2013 treated with Mohs FAMILY HISTORY [...] is a well-healed scar on the right sikhism from a previous basal cell carcinoma site [...] #5 Seborrheic keratoses, right forehead and right sikhism The benign nature of this skin lesion [...] History documented in this encounter Care Teams Leaf Sucker Operator Relationship Specialty Start Date End Date Nicole Andrade M.D., PCP - General Internal Medicine 09/03/10 02/01/18 M.H.A. [address] [place] [address] documented as of this encounter
--- OUTSIDE RECORDS SUMMARY | 2022-03-11 07:19 | XMS_ITS | Clinical Summary ---
:1955 Author Organization [facility] Address [address] [place] [address] Care Team Providers Name Role Phone Elsewhere, Pcp Primary Care Provider Unavailable Source Comments Patient records contain information from all sites at [facility]. For routine questions regarding patient records, call [phone] during business hours, M-F 8:00 AM - 5:00 PM Central Time. Record requests for emergency care only can be directed to [phone] at any time.[facility] Allergies Active Allergy Reactions Severity Noted Date Comments Benazepril Cough 12/30/2010 Vancomycin Itching 08/22/2011 Medications Medication Sig Dispensed Refills Start Date End Date Status aspirin 81 mg chewable Chew 1 tablet 0 09/16/2010 Active tablet daily. DOCOSAHEXANOIC ACID/EPA Take 2 capsules 0 09/16/2010 Active (FISH OIL ORAL) by mouth daily. Contains 500 mg [place]-3 Fatty acids per capsule Take with meals multivitamin tablet Take 1 tablet by 0 09/16/2010 Active mouth daily. cholecalciferol Take 1 capsule by 0 12/29/2011 Active (VITAMIN D3) 1,000 Unit mouth daily. 2000 capsule naphazoline-pheniramine Administer 1 drop 0 Active (OPCON-A) 0.53682-9.315 into both eyes % ophthalmic solution daily. [...] place to sleep or slept in a assisted (including now)? 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 See document viewer. Care Teams Economic Development Manager Relationship Specialty Start Date End Date Elsewhere, Pcp PCP - General Internal Medicine 01/03/20
--- OUTSIDE RECORDS SUMMARY | 2022-03-11 07:19 | XMS_ITS | Encounter Summary ---
:1955 Author Organization [facility] Address [address] [place] [address] Care Team Providers Name Role Phone Nicole Andrade M.D., M.H.A. Primary Care Provider [phone]- [phone] Reason for Referral Outpatient (Routine) - Closed Specialty Diagnoses / Procedures Referred By Contact Refer red To Contact Ophthalmology Naima Garcia M.D . [address] [phone] Referral ID Status Reason Start Date Expiration Date Visits Requ ested Visits Authorized [id number] Closed 12/31/2017 12/31/2018 1 1 Scheduling Instructions TD, with KPK 1 PM Encounter Details Date Type Department Care Team Description 12/31/2017 Documentation Department of Ophthalmology Peggy Garcia, in [facility] giselle Young [address] [place] [phone] Social History Tobacco Use Types Packs/Day [...] or relatives? How often do you attend congregational or More than 4 times per year 02/19/2022 methodist services? Do you belong to any clubs or Yes 02/19/2022 organizations such as congregational groups, unions, fraternal or athletic groups, or [...] or slept in a halfway (including now)? Sex Assigned at Date Recorded [...] Bilateral documented in this encounter Care Teams Linux Admin Relationship Specialty Start Date End Date Nicole Andrade M.D., PCP - General Internal Medicine 09/03/10 02/01/18 M.H.A. [address] [place] [phone] documented as of this encounter
--- OUTSIDE RECORDS SUMMARY | 2022-03-11 07:19 | XMS_ITS | Encounter Summary ---
:1955 Author Organization [facility] Address [address] [place] [address] Care Team Providers Name Role Phone Nicole [...] More than 4 times per year 02/19/2022 hinduism services? Do you belong to any clubs [...] on filedocumented in this encounter Care Teams Cellular Biologist Relationship Specialty Start Date End Date Nicole Andrade M.D., PCP - General Internal Medicine 09/03/10 02/01/18 M.H.A. [address] [place] [address] documented as of this encounter
--- OUTSIDE RECORDS SUMMARY | 2022-03-11 07:19 | XMS_ITS | Encounter Summary ---
:1955 Author Organization [facility] Address [address] [place] [address] Care Team Providers Name Role Phone Nicole Andrade M.D., M.H.A. Primary Care Provider [phone]- [phone] Encounter Details Date Type Department Care Team Description 10/26/2012 Hospital Encounter HX [facility] Carrie Ryan P.A.-C. [address] [place] [address] [phone] (Wo rk) Social History Tobacco [...] or relatives? How often do you attend rastafarian or More than 4 times per year 02/19/2022 jainism services? Do you belong to any clubs or Yes 02/19/2022 organizations such as rastafarian groups, unions, fraternal or athletic groups, or [...] OIL ORAL) mouth daily. Contains 500 mg [place]-3 Fatty acids per capsule Take with meals [...] on filedocumented in this encounter Care Teams Log Buncher Relationship Specialty Start Date End Date Nicole Andrade M.D., PCP - General Internal Medicine 09/03/10 02/01/18 M.H.A. [address] [place] [phone] documented as of this encounter
--- OUTSIDE RECORDS SUMMARY | 2022-03-11 07:19 | XMS_ITS | Encounter Summary ---
:1955 Author Organization [facility] Address [address] [place] [address] Care Team Providers Name Role Phone Elsewhere, Pcp Primary Care Provider Unavailable Encounter Details Date Type Department Care Team Description 01/03/2020 Hospital Encounter Department of Beny Velazquez Encoun ter For Laboratory Medicine M.Karol Screening For Other in [address] (COVID-19) [address] [place] [phone] Social History Tobacco Use Types Packs/Day Years [...] or relatives? How often do you attend moravian or More than 4 times per year 02/19/2022 mandaen services? Do you belong to any clubs or Yes 02/19/2022 organizations such as moravian groups, unions, fraternal or athletic groups, or [...] slept in a senior living (including now)? Education Answer Date Recorded What [...] OIL ORAL) mouth daily. Contains 500 mg [place]-3 Fatty acids per capsule Take with meals multivitamin tablet Take 1 tablet by 0 09/16/2010 mouth daily. naphazoline-pheniramine Administer 1 drop 0 (OPCON-A) 0.53942-2.315 % into both eyes daily. ophthalmic solution [...] Total Antibody, Serum (01/03/2020 12:25 PM CDT) [facility] Method Time Signature SARS-CoV-2 Negative Negative [...] was performed using the [employer] El ecsys Egon-YJDA-RzB-2 Reagent assay from [employer], which has received Emergency Use Authori zation(EUA) by the U.S. Food and Drug Administration . Fact sheets for this Emergency Use Autho rization (EUA) assay can be found at the following link s: For Healthcare Providers: https://www.fda.gov/media/905791/downloa d For Patients: https://www.fda.gov/media/034401/downloa d Specimen Anatomical Collection Method Collection Time Receive d Time (Source) Location / / Volume Laterality Blood (Blood, 01/03/2020 12:25 01/03/2020 9:51 Venous) PM CDT PM CDT Covid Serology Testing Employer Based LAB MICROBIOLOGY - BLOOD ORDERABLES Performing Organization Address City/State/[facility] Phon e Number [facility]- [address] [place] [phone] [facility] [place] [address] [address] documented in this encounter Visit Diagnoses Diagnosis Encounter For Screening For Other Viral Diseases (COVID-19) documented in this encounter Care Teams Human Resources Assistant Manager Relationship Specialty Start Date End Date Elsewhere, Pcp PCP - General Internal Medicine 01/03/20 documented as of this encounter
--- OUTSIDE RECORDS SUMMARY | 2022-03-11 07:19 | XMS_ITS | Encounter Summary ---
:1955 Author Organization [facility] Address [address] [place] [address] Care Team Providers Name Role Phone Elsewhere, [...] More than 4 times per year 02/19/2022 jehovah's witness services? Do you belong to any clubs [...] place to sleep or slept in a detention (including now)? Education Answer Date Recorded What [...] on filedocumented in this encounter Care Teams Motor Vehicle Parts Interpreter Relationship Specialty Start Date End Date Elsewhere, Pcp PCP - General Internal Medicine 01/03/20 documented as of this encounter
--- OUTSIDE RECORDS SUMMARY | 2022-03-11 07:19 | XMS_ITS | Encounter Summary ---
:1955 Author Organization [facility] Address [address] [place] [address] Care Team Providers Name Role Phone Elsewhere, Pcp Primary Care Provider Unavailable Encounter Details Date Type Department Care Team Description 05/16/2020 Admin Visit Department of Family Medicine, [address] [phone] [facility] [phone] Social History Tobacco Use Types Packs/Day Years [...] or relatives? How often do you attend yazidi or More than 4 times per year 02/19/2022 quaker services? Do you belong to any clubs or Yes 02/19/2022 organizations such as yazidi groups, unions, fraternal or athletic groups, or [...] COVID19 Pending 05/16/2020 05/16/2020 05/17/2020 4:59 PM STRUCTURAL STEEL ENGINEER documented as of this encounter Care Teams Dope Sprayer Relationship Specialty Start Date End Date Elsewhere, Pcp PCP - General Internal Medicine 01/03/20 documented as of this encounter
--- OUTSIDE RECORDS SUMMARY | 2022-03-11 07:19 | XMS_ITS | Encounter Summary ---
:1955 Author Organization [facility] Address [address] [place] [address] Care Team Providers Name Role Phone Elsewhere, Pcp Primary Care Provider Unavailable Reason for Visit Reason Onset Date Comments Outpatient COVID-19 Testing 01/01/2020 Encounter Details Date Type Department Care Team Description 01/01/2020 External Outreach Department of Ally Marshall, P.A.-C. [address] [place] [address] Encounter For Family Medicine, Employer Based, Covid Serology Testing Screening For Other [facility], in [place], [place] (COVID-19) (Primary [address]x) [place] [address] Social History Tobacco Use Types [...] or relatives? How often do you attend cheondoism or More than 4 times per year 02/19/2022 religion services? Do you belong to any clubs or Yes 02/19/2022 organizations such as cheondoism groups, unions, fraternal or athletic groups, or [...] Scrn, Blood Spot (01/01/2020 8:22 AM CDT) [facility] Method Time Signature SARS-CoV-2 Reactive (A) Negative [...] Testing was performed using the [employer] N Tskm-QMDH-WcJ-2 CHRISTOPHER (IgG). ??This test has received Emergency Use Authorization (EUA) by the U.S. Food and Drug Administration and is used per global logistics analyst's instructions, but it is modified from the global logistics analyst's instructions wit h a bridging study to include dried blood spot specimens. ? ? Performance characteristics were verifie d by [facility] in a manner consistent with CLIA require ments. Specimen Anatomical Collection Method Collection Time Receive d Time (Source) Location / / Volume Laterality Blood (Blood, 01/01/2020 8:22 AM 01/02/20 20 5:11 Venous) CDT PM CDT Covid Serology Testing Employer Based LAB MICROBIOLOGY - BLOOD ORDERABLES Performing Organization Address City/State/ZIP Code Phon e Number [facility] [address] [place] [address] SUPPORT CENTER [facility] [place] [address] Laboratory Medicine and Pathology [address] [place] documented in this encounter Visit Diagnoses Diagnosis Encounter For Screening For Other Viral Diseases (COVID-19) - Primary documented in this encounter Care Teams Concrete Craftsman Relationship Specialty Start Date End Date Elsewhere, Pcp PCP - General Family Medicine 02/02/18 01/02/20 documented as of this encounter
--- OUTSIDE RECORDS SUMMARY | 2022-03-11 07:19 | XMS_ITS | Encounter Summary ---
:1955 Author Organization [facility] Address [address] [place] [address] Care Team Providers Name Role Phone Elsewhere, Pcp Primary Care Provider Unavailable Encounter Details Date Type Department Care Team Description 01/03/2020 Orders Only Department of Family Employer Based, [facility] [place] Covid Serology Screeni For Other Clinic, in [place], Testing Viral D [facility] (COVID-19) (Primary [address]) [place] [address] Social History Tobacco Use Types [...] or relatives? How often do you attend lutheran or More than 4 times per year 02/19/2022 synagogue services? Do you belong to any clubs or Yes 02/19/2022 organizations such as lutheran groups, unions, fraternal or athletic groups, or [...] place to sleep or slept in a skilled nursing (including now)? Education Answer Date Recorded What [...] Total Antibody, Serum (01/03/2020 12:25 PM CDT) [facility] Method Time Signature SARS-CoV-2 Negative Negative [...] was performed using the [employer] El ecsys Lzlr-QIKZ-WiB-2 Reagent assay from [employer], which has received Emergency Use Authori zation(EUA) by the U.S. Food and Drug Administration . Fact sheets for this Emergency Use Autho rization (EUA) assay can be found at the following link s: For Healthcare Providers: https://www.fda.gov/media/943439/downloa d For Patients: https://www.fda.gov/media/974252/downloa d Specimen Anatomical Collection Method Collection Time Receive d Time (Source) Location / / Volume Laterality Blood (Blood, 01/03/2020 12:25 01/03/2020 9:51 Venous) PM CDT PM CDT Covid Serology Testing Employer Based LAB MICROBIOLOGY - BLOOD ORDERABLES Performing Organization Address City/State/ZIP Code Phon e Number [facility] [address] [place] [address] [phone] [facility] [place] [address] [address] documented in this encounter Visit Diagnoses Diagnosis Encounter For Screening For Other Viral Diseases (COVID-19) - Primary documented in this encounter Care Teams Pleater Hand Relationship Specialty Start Date End Date Elsewhere, Pcp PCP - General Internal Medicine 01/03/20 documented as of this encounter
--- OUTSIDE RECORDS SUMMARY | 2022-03-11 07:19 | XMS_ITS | Encounter Summary ---
:1955 Author Organization [facility] Address [address] [place] [address] Care Team Providers Name Role Phone Elsewhere, [...] More than 4 times per year 02/19/2022 temple services? Do you belong to any clubs [...] or slept in a jail (including now)? Education Answer Date Recorded What [...] on filedocumented in this encounter Care Teams Pipe Organ Tuner And Repairer Relationship Specialty Start Date End Date Elsewhere, Pcp PCP - General Internal Medicine 01/03/20 documented as of this encounter
--- OUTSIDE RECORDS SUMMARY | 2022-03-11 07:19 | XMS_ITS | Encounter Summary ---
:1955 Author Organization [facility] Address [address] [place] [address] Care Team Providers Name Role Phone Elsewhere, Pcp Primary Care Provider Unavailable Encounter Details Date Type Department Care Team Description 08/18/2020 Immunization Department of [facility] Jhonny Tillman [facility] COVID-19 Medicine, Pawan Brumfield M.D. Vaccine Immunization [facility], in [address] [place] [phone] [place] [address] [place], [place] (Work) [phone] Social History Tobacco Use [...] or relatives? How often do you attend jehovah's witness or More than 4 times per year 02/19/2022 baptist services? Do you belong to any clubs or Yes 02/19/2022 organizations such as jehovah's witness groups, unions, fraternal or athletic groups, or [...] ion documented in this encounter Care Teams Air Conditioning Manager Relationship Specialty Start Date End Date Elsewhere, Pcp PCP - General Internal Medicine 01/03/20 documented as of this encounter
--- OUTSIDE RECORDS SUMMARY | 2022-03-11 07:19 | XMS_ITS | Encounter Summary ---
:1955 Author Organization [facility] Address [address] [place] [address] Care Team Providers Name Role Phone Elsewhere, Pcp Primary Care Provider Unavailable Reason for Referral Outpatient (Routine) - Authorized Specialty Diagnoses / Procedures Referred By Contact Refer red To Contact Dermatology Yaa Hamm M.D. [facility] [address] [place] [address] Referral ID Status Reason Start Date Expiration Date Visits V isits Requested Authorized [id number] Authorized 02/23/2022 02/22/2025 1 1 Reason for Visit Appointment Request (Routine) - Closed Specialty Diagnoses / Procedures Referred By Contact Refer red To Contact Dermatology Diagnoses Screening Examination Skin Cancer Referral ID Status Reason Start Date Expiration Date Visits Requ ested Visits Authorized [id number] Closed 12/29/2021 12/29/2022 1 1 Encounter Details Date Type Department Care Team Description 02/23/2022 Office Visit Department of Isaq, Chadwick A, Cancer Skin Basal Cell Personal History (Primary Dx); Dermatology in M.D. Dermatoheliosis; [place], [place] [address] [facility] Keratosis Seborrheic; [address] [place], [place] Angioma Clarke; [place] [address] [place] [phone] Social History Tobacco Use [...] or relatives? How often do you attend christian or More than 4 times per year 02/19/2022 rastafari services? Do you belong to any clubs or Yes 02/19/2022 organizations such as christian groups, unions, fraternal or athletic groups, or [...] place to sleep or slept in a longterm (including now)? Education Answer Date Recorded What [...] CDT Correspondence to: Chadwick Tobin M.D. Supervising contract consultant, Dr. Hamm, was immediately available, but consultation was not required. 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 He has 3 children and 4 grandchildren. [...] Multiple documented in this encounter Care Teams Telephone Diaphragm Assembler Relationship Specialty Start Date End Date Elsewhere, Pcp PCP - General Internal Medicine 01/03/20 documented as of this encounter
--- OUTSIDE RECORDS SUMMARY | 2022-03-11 07:19 | XMS_ITS | Encounter Summary ---
:1955 Author Organization [facility] Address [address] [place] [address] Care Team Providers Name Role Phone Elsewhere, Pcp Primary Care Provider Unavailable Reason for Referral Specialty Diagnoses / Procedures Referred By Contact Refer red To Contact [address] [phone] Referral ID Status Reason Start Date Expiration Date Visits Requ ested Visits Authorized WARE EDUCATOR Encounter Details Date Type Department Care Team Description 07/28/2020 Immunization Department of [facility] Beny Velazquez Encou nt For COVID-19 Medicine, Pawan Young Vaccine Immunization [facility], [place] [address] (Primary Dx) [address] [address] [place], [place] [phone] (Work) [phone] Social History Tobacco Use Types Packs/Day Years [...] or relatives? How often do you attend anabaptism or More than 4 times per year 02/19/2022 cheondoism services? Do you belong to any clubs or Yes 02/19/2022 organizations such as anabaptism groups, unions, fraternal or athletic groups, or [...] or slept in a correction (including now)? Education Answer Date Recorded What [...] Primary documented in this encounter Care Teams Casino Porter Relationship Specialty Start Date End Date Elsewhere, Pcp PCP - General Internal Medicine 01/03/20 documented as of this encounter
--- OUTSIDE RECORDS SUMMARY | 2022-03-11 07:19 | XMS_ITS | Encounter Summary ---
:1955 Author Organization [facility] Address [address] [place] [address] Care Team Providers Name Role Phone Elsewhere, Pcp Primary Care Provider Unavailable Reason for Visit Reason Comments Flashes, Light Appointment Request (Routine) - Closed Specialty Diagnoses / Procedures Referred By Contact Refer red To Contact Ophthalmology Referral ID Status Reason Start Date Expiration Date Visits Requ ested Visits Authorized [id number] Closed 02/01/2018 02/01/2019 1 Encounter Details Date Type Department Care Team Description 02/28/2018 Office Visit Department of Naima Garcia Ophthalmology in P, M[facility]. [facility] [place], [place] (Primary Dx) [address] [place] [address] Social History Tobacco Use Types Packs/Day [...] or relatives? How often do you attend orthodox or More than 4 times per year 02/19/2022 anabaptism services? Do you belong to any clubs or Yes 02/19/2022 organizations such as orthodox groups, unions, fraternal or athletic groups, or [...] imary documented in this encounter Care Teams Emissions Technician Relationship Specialty Start Date End Date Elsewhere, Pcp PCP - General Family Medicine 02/02/18 01/02/20 documented as of this encounter
--- OUTSIDE RECORDS SUMMARY | 2022-03-11 07:19 | XMS_ITS | Encounter Summary ---
:1955 Author Organization [facility] Address [address] [place] [address] Care Team Providers Name Role Phone Nicole [...] More than 4 times per year 02/19/2022 baptism services? Do you belong to any clubs [...] OIL ORAL) mouth daily. Contains 500 mg Fife-3 Fatty acids per capsule Take with meals multivitamin tablet Take 1 tablet by 0 09/16/2010 mouth daily. documented as of this encounter Plan of Treatment Not on filedocumented as of this encounter Visit Diagnoses Not on filedocumented in this encounter Care Teams Investigator Welfare Relationship Specialty Start Date End Date Nicole Andrade M.D., PCP - General Internal Medicine 09/03/10 02/01/18 [facility] [address] [place] [address] documented as of this encounter
--- OUTSIDE RECORDS SUMMARY | 2022-03-11 07:19 | XMS_ITS | Encounter Summary ---
:1955 Author Organization [facility] Address [address] [place] [address] Care Team Providers Name Role Phone Elsewhere, Pcp Primary Care Provider Unavailable Encounter Details Date Type Department Care Team Description 05/17/2020 Virtual Visit Division of General Vikas Francois COV ID-19 Infection Internal Medicine in [place] (Primary Dx) [place], [place] [address] [facility] [address] [place] [phone] Social History Tobacco Use Types Packs/Day Years [...] Current as of 2 hours ago 0 Detention Patient: No Current as of 2 hours ago 0 COVID-19 Component - End State Renal Disease: 0 Current as of 2 hours ago 0 Chronic Liver Disease Registry: No Current as of 2 hours ago 0 : No Current as of 2 hours ago Mr. Anderson has been in the following facilities in the last 14 days: Medical clinic Facility(s) name: [facility] Association with [facility]: Employee Last date at work/school: 05/09/20 Additional household members: 1;Some are sick without known COVID PROBLEM LIST Patient Active Problem List Diagnosis ??? Detachment Vitreous Posterior Right ??? Pinguecula Bilateral RESULTS Microbiology Results (last 10 days) Procedure Component Value - Date/Time SARS Coronavirus-2 RNA, V Symptomatic [[id number]] (Abnormal) Collected: 05/16/20 1612 Lab Status: Final result Specimen: Varies from Nasopharynx Updated: 05/17/20 165 SARS-CoV-2 Specimen Source Swab, Nasopharynx SARS CoV-2 RNA, TMA Detected Comment: SARS-CoV-2 RNA present. ----ADDITIONAL INFORMATION---- This test is performed using the Aptima SARS-CoV-2 assay ([employer] which has received Emergency Use Authorization (EUA) by the U.S. Food and Drug Administration. Fact sheets for this Emergency Use Authorization (EUA) assay can be found at the following links: For Healthcare Providers: https://www.fda.gov/media/998852/download For Patients: https://www.fda.gov/media/350435/download ASSESSMENT/PLAN #1 COVID-19 disease Upcoming nhyh-vh-gtox appointments: no. Recommendations: Day 0 for release [...] adjusted based on the clinical course. - https://www.SMS Assist.com/watch?time_continue=6&v=UuZC8sZyPPw&feature=emb_logo o Testing prior to release from isolation is NOT recommended by CDC or [facility] Infection Prevention and Control for clinical purposes [...] to work best practices, they should contact [facility] Occupational Medicine at [email or web address]. o The patient should receive approval [...] call ahead to minimize wait times. The [facility] COVID Triage Line can be reached at [phone]. ??? Mr. Anderson was advised that COVID-19 is a notifiable disease and that they will be contacted by [employer] for contact tracing. ??? Please review the links below for additional education. o What to do now that you that you know you have COVID-19 - https://www.health.[facility].me./diseases/coronavirus/materials/videos.html - https://www.cdc.gov/coronavirus/2019-ncov/downloads/hqbo-zjet-8083-ncnd-qjnq-och et.pdf - https://www.cdc.gov/coronavirus/2019-ncov/qt-wju-hnk-sick/axuhj-cswo-gilw.html o Additional information about COVID-19 - https://www.cdc.gov/coronavirus/2019-ncov/ o Cognitive Behavior Therapy-Insomnia to help improve sleep - https://mccpacontent.[place].edu/PatientEducation/PatientLearning/index.html#/ o Building Resiliency During the COVID-19 Pandemic - https://[facility] medical centercontent.[place].[facility]/2020/PatientEducation/content/index.html#/ ??? Consider donating convalescent plasma once you have recovered from your illness (14 days after symptoms have resolved) o Survey to assess eligibility: https://redcap2.[place].edu/redcap/surveys/?s=4UYJ6DUL1K and/ or contact convalescent.plasma@[facility] [place].[facility] o More information is available at - https://www.covidplasma.org/ - https://ccpp19.org/ - https://covidplasma.org/ This note is being cc'ed to the patient's primary care physician for their situational awareness only. The COVID-19 Frontline Care Team will follow up on next steps related to the COVID-19 infection. From a [facility] employee exposure standpoint if Mr. Anderson was [...] Vikas Francois D.O. COVID-19 Frontline Care Team [facility] This was a virtual visit. The patient was not seen face to face because of COVID-19. Total time spent in chart review/counselin minutes CTOR PUBLIC SERVICE documented in this encounter Plan of Treatment Not on filedocumented as of this encounter Visit Diagnoses Diagnosis COVID-19 Infection - Primary documented in this encounter Additional Health Concerns Infection Onset Date Last Indicated Resolved Time COVID19 Pending 05/16/2020 05/16/2020 05/17/2020 4:59 PM DIRECTOR PUBLIC SERVICE COVID19 05/16/2020 05/16/2020 06/10/2020 4:49 AM DIRECTOR PUBLIC SERVICE documented as of this encounter Care Teams Digital Data Analyst Relationship Specialty Start Date End Date Elsewhere, Pcp PCP - General Internal Medicine 01/03/20 documented as of this encounter
--- OUTSIDE RECORDS SUMMARY | 2022-03-11 07:19 | XMS_ITS | Encounter Summary ---
:1955 Author Organization [facility] Address [address] [place] [address] Care Team Providers Name Role Phone Elsewhere, Pcp Primary Care Provider Unavailable Reason for Referral Outpatient (Routine) - Closed Specialty Diagnoses / Procedures Referred By Contact Refer red To Contact Dermatology Thuy Peña APRN, [facility] Tigre C.N.P., D.N.P., M.S. N. [address] [place] [phone] Referral ID Status Reason Start Date Expiration Date Visits Requ ested Visits Authorized [id number] Closed 01/10/2019 01/10/2020 1 1 Reason for Visit Outpatient (Routine) - Closed Specialty Diagnoses / Procedures Referred By Contact Refer red To Contact Dermatology Traci Gaines APRN [facility] Tigre C.N.P., D.N.P. [address] [place] [phone] Referral ID Status Reason Start Date Expiration Date Visits Requ ested Visits Authorized [id number] Closed 12/07/2017 12/07/2018 1 1 Encounter Details Date Type Department Care Team Description 01/10/2019 Office Visit Department of Thuy Peña Cancer Skin Basal Cell Personal History (Primary Dx); Dermatology marlys Cartagena APRN C.N.PJared, Keratosis Seborrheic; [place], [place] Keyonna, M.S.N. Dermatoheliosis; [address] [facility] Angioma Clarke; [place], [place] [phone] [phone] Social History Tobacco Use Types Packs/Day Years [...] or relatives? How often do you attend buddhist or More than 4 times per year 02/19/2022 jainism services? Do you belong to any clubs or Yes 02/19/2022 organizations such as buddhist groups, unions, fraternal or athletic groups, or [...] place to sleep or slept in a fpc (including now)? Education Answer Date Recorded What is the highest level of Professional school degree (e.g ., , 01/06/2019 school you have completed or the DDS, DVM, NAHED) highest degree you have received? Sex Assigned at Date Recorded Male 12/02/2017 10:04 PM CDT documented as of this encounter Consult Notes Thuy Peña, INSURANCE ADVISOR, C.NIris, M.S.N. - 01/10/2019 11:30 AM CDT CHIEF COMPLAINT / REASON FOR VISIT Supervised by: Dr. Ama Neumann ([phone]) Patient seen and discussed with supervising senior solutions workflow consultant, Dr. Ama Neumann, who evaluated the [...] a basal cell carcinoma on his right anabaptism that was treated in 2013 with Mohs [...] of basal cell carcinoma involving the right anabaptism treated with Mohs surgery in 2013 FAMILY [...] upper and lower extremities. Involving the right anabaptism is a we ll healed surgical scar without evidence of nodularity or recurrence. ASSESSMENT / PLAN #1 History of basal cell carcinoma involving the right anabaptism , no evidence of reccurence #2 Dermatoheliosis [...] Multiple documented in this encounter Care Teams Retail Cashier Relationship Specialty Start Date End Date Elsewhere, Pcp PCP - General Family Medicine 02/02/18 01/02/20 documented as of this encounter
--- OUTSIDE RECORDS SUMMARY | 2022-03-11 07:19 | XMS_ITS | Encounter Summary ---
:1955 Author Organization [facility] Address [address] [place] [address] Care Team Providers Name Role Phone Nicole Andrade M.D., M.H.A. Primary Care Provider [phone] Reason for Visit Outpatient (Routine) - Closed Specialty Diagnoses / Procedures Referred By Contact Refer red To Contact Ophthalmology Naima Garcia M.D . [address] [place] [address] Referral ID Status Reason Start Date Expiration Date Visits Requ ested Visits Authorized [id number] Closed 12/31/2017 12/31/2018 1 1 Encounter Details Date Type Department Care Team Description 01/31/2018 Office Visit Department of Naima Garcia [facility] Ophthalmology marlys France M.D. [facility] [place], [place] (Primary Dx) [address] [place] [phone] Social History Tobacco Use Types Packs/Day [...] or relatives? How often do you attend jainism or More than 4 times per year 02/19/2022 synagogue services? Do you belong to any clubs or Yes 02/19/2022 organizations such as jainism groups, unions, fraternal or athletic groups, or [...] imary documented in this encounter Care Teams Sprinkler Inspector Relationship Specialty Start Date End Date Nicole Andrade M.D., PCP - General Internal Medicine 09/03/10 02/01/18 M.H.A. [address] [place] [address] documented as of this encounter
--- OUTSIDE RECORDS SUMMARY | 2022-03-11 07:19 | XMS_ITS | Encounter Summary ---
:1955 Author Organization [facility] Address [address] [place] [address] Care Team Providers Name Role Phone Nicole Andrade M.D., M.H.A. Primary Care Provider [phone] Encounter Details Date Type Department Care Team Description 11/30/2013 Hospital Encounter HX RST DERM SURG OP [facility] Stephanie Ruggiero M.D. [address] [place] [address] (Wo rk) Social History Tobacco Use Types [...] or slept in a snf (including now)? Sex Assigned at Date Recorded [...] OIL ORAL) mouth daily. Contains 500 mg [place]-3 Fatty acids per capsule Take with meals multivitamin tablet Take 1 tablet by 0 09/16/2010 mouth daily. documented as of this encounter Plan of Treatment Not on filedocumented as of this encounter Visit Diagnoses Not on filedocumented in this encounter Care Teams Industrial Eng Relationship Specialty Start Date End Date Nicole Andrade M.D., PCP - General Internal Medicine 09/03/10 02/01/18 M.H.A. [address] [place] [address] documented as of this encounter
--- OUTSIDE RECORDS SUMMARY | 2022-03-11 07:19 | XMS_ITS | Encounter Summary ---
:1955 Author Organization [facility] Address [address] [place] [id number] Care Team Providers Name Role Phone Elsewhere, Pcp Primary Care Provider Unavailable Reason for Referral Specialty Diagnoses / Procedures Referred By Contact Refer red To Contact Saskia Ardon M.D. [facility] [address] [place] [phone] Referral ID Status Reason Start Date Expiration Date Visits Requ ested Visits Authorized CTOR OF QUALITY IMPROVEMENT Encounter Details Date Type Department Care Team Description 06/26/2020 Orders Only [facility] anson Ardon M.D. [address] [place], [place] [phone] (Wo rk) Social History [...] or relatives? How often do you attend evangelical or More than 4 times per year 02/19/2022 anabaptism services? Do you belong to any clubs or Yes 02/19/2022 organizations such as evangelical groups, unions, fraternal or athletic groups, or [...] on filedocumented in this encounter Care Teams Flame Hardener Relationship Specialty Start Date End Date Elsewhere, Pcp PCP - General Internal Medicine 01/03/20 documented as of this encounter
--- OUTSIDE RECORDS SUMMARY | 2022-03-11 07:19 | XMS_ITS | Encounter Summary ---
:1955 Author Organization [facility] Address [address] [place] [id number] Care Team Providers Name Role Phone Elsewhere, Pcp Primary Care Provider Unavailable Reason for Referral Outpatient (Routine) - Closed Specialty Diagnoses / Procedures Referred By Contact Refer red To Contact Dermatology Diagnoses Nevi Multiple Danna Tom M.D. [facility] Procedures Dermatology misc minor procedure [address] [place] [phone] Referral ID Status Reason Start Date Expiration Date Visits Requ ested Visits Authorized [id number] Closed 11/04/2020 11/04/2021 1 1 Reason for Visit Outpatient (Routine) - Closed Specialty Diagnoses / Procedures Referred By Contact Refer red To Contact Dermatology Thuy Peña APRN, [place] [facility] C.N[facility]., D.N.P., M.S. N. [address] [place] [phone] Referral ID Status Reason Start Date Expiration Date Visits Requ ested Visits Authorized [id number] Closed 01/10/2019 01/10/2020 1 1 Encounter Details Date Type Department Care Team Description 11/04/2020 Office Visit Department of Danna Tom Nevi Multi ple (Primary Dx); Dermatology in [place], [place] [address] [phone] Social History Tobacco Use Types Packs/Day Years [...] nodular basal cell carcinoma involving the right mu-ism,status post Mohs surgery on 11/30/[address] Casiano at [facility]. The patient denies a personal history for melanoma. His father does have a history of melanoma. He reports regular use of sunscreen. No areas of concern today. Allergies Allergen Reactions ??? Benazepril Cough ??? Vancomycin Itching MEDICAL HISTORY 1. Right mu-ism: Nodular basal cell carcinoma, status post Mohs surgery on 11/30/[address] Casiano at [facility] FAMILY HISTORY Father with history of melanoma OBJECTIVE PHYSICAL EXAMINATION General: Awake, alert, in no acute distress, and with appropriate affect. Eyes: No scleral injection or icterus. No eyelid abnormalities. Lymph: No lower extremity edema. Skin: I have examined the scalp, face, neck, chest, abdomen, back, bilateral upper extremities, and bilateral lower extremities. Examination of the right mu-ism/right upper forehead reveals a Mohs surgery scar [...] smalls angiomas. ASSESSMENT / PLAN #1 Right mu-ism: Nodular basal cell carcinoma, status post Mohs surgery on 11/30/[address] Casiano at [facility], no recurrence Examination today reveals no [...] Seborrheic documented in this encounter Care Teams Professional Services Specialist Relationship Specialty Start Date End Date Elsewhere, Pcp PCP - General Internal Medicine 01/03/20 documented as of this encounter
--- OUTSIDE RECORDS SUMMARY | 2022-03-11 07:19 | XMS_ITS | Encounter Summary ---
:1955 Author Organization [facility] Address [address] [place] [address] Care Team Providers Name Role Phone Elsewhere, Pcp Primary Care Provider Unavailable Reason for Visit Reason Onset Date Comments Outpatient COVID-19 Testing 05/16/2020 Encounter Details Date Type Department Care Team Description 05/16/2020 External Outreach Department of Shawn Agustin Infect ion [facility] Internal Medicine in J, D.O. Respiratory (Primary [place], [place] [address] Dx) [address] [place] [phone] Social History Tobacco Use Types Packs/Day Years [...] Encounter created for the drive-through COVID-19 testing. F SCIENTIST documented in this encounter Plan of Treatment Not on filedocumented as of this encounter Procedures Procedure Name Priority Date/Time Associated Diagnosis Comme nts SARS CORONAVIRUS-2 Routine 05/16/2020 4:12 PM Infection Upper Results for this RNA, V STAFF SCIENTIST Respiratory procedure are i n the results section. documented in this encounter Results (ABNORMAL) SARS Coronavirus-2 RNA, V Symptomatic (05/16/2020 4:12 PM STAFF SCIENTIST) [facility] Method Time Signature SARS-CoV-2 Swab, 05/17/2020 [facility] Specimen Nasopharynx 4:59 PM STAFF SCIENTIST Source SARS CoV-2 Detected (C) Undetected 05/17/2020 [facility] RNA, TMA 4:59 PM STAFF SCIENTIST Comment: SARS-CoV-2 RNA present. ----ADDITIONAL INFORMATION---- This test is performed using the Aptima SARS-CoV-2 assay ([employer] which has received Emergency Use Authori zation (EUA) by the U.S. Food and Drug Administration. Fact sheets for this Emergency Use Autho rization (EUA) assay can be found at the following links: For Healthcare Providers: https://www.fd a.gov/media/919936/download For Patients: https://www.fda.gov/media/ 318719/download Specimen Anatomical Collection Method Collection Time Receive d Time (Source) Location / / Volume Laterality Varies 05/16/2020 4:12 PM 0 9:59 (Nasopharynx) STAFF SCIENTIST AM STAFF SCIENTIST Shawn Agustin D.O. LAB MICROBIOLOGY - GENERAL O RDERABLES Performing Organization Address City/State/[facility] Phon e Number [facility]- [address] [place] [address] [place] [address] [address] documented in this encounter Visit Diagnoses Diagnosis Infection Upper Respiratory - Primary documented in this encounter Additional Health Concerns Infection Onset Date Last Indicated Resolved Time COVID19 Pending 05/16/2020 05/16/2020 05/17/2020 4:59 PM STAFF SCIENTIST documented as of this encounter Care Teams Sales And Marketing Administrator Relationship Specialty Start Date End Date Elsewhere, Pcp PCP - General Internal Medicine 01/03/20 documented as of this encounter
--- OUTSIDE RECORDS SUMMARY | 2022-03-11 07:19 | XMS_ITS | Encounter Summary ---
:1955 Author Organization [facility] Address [address] [place] [address] Care Team Providers Name Role Phone Elsewhere, Pcp Primary Care Provider Unavailable Reason for Visit Reason Comments Biopsy Outpatient (Routine) - Closed Specialty Diagnoses / Procedures Referred By Contact Refer red To Contact Dermatology Diagnoses [facility] Danna Tom M.D. [facility] Procedures Dermatology mis minor procedure [address] [place] [phone] Referral ID Status Reason Start Date Expiration Date Visits Requ ested Visits Authorized [id number] Closed 11/04/2020 11/04/2021 1 1 Encounter Details Date Type Department Care Team Description 12/30/2020 Procedure visit Department of Danna Tom Tumor Skin Uncertain Behavior (Primary Dx); Dermatology in [place] Cartagena M.D. [place], [place] [address] [phone] Social History Tobacco Use Types Packs/Day Years [...] or relatives? How often do you attend yarsanism or More than 4 times per year 02/19/2022 yarsanism services? Do you belong to any clubs or Yes 02/19/2022 organizations such as yarsanism groups, unions, fraternal or athletic groups, or [...] place to sleep or slept in a residential (including now)? Education Answer Date Recorded What [...] at that time. MEDICAL HISTORY 1. Right congregation: Nodular basal cell carcinoma, status post Mohs surgery on 11/30/[address] Casiano at [facility] ?? FAMILY HISTORY Father with history of [...] the patient by letter. Patient given pamphlet [id number]. #2 Upper central sternum: Probable pigmented SK, [...] the patient by letter. Patient given pamphlet [id number]. PATIENT EDUCATION: Ready to learn. No apparent [...] 7:46 AM CDT B9 lesions x2 . Pryor pt, please send letter. documented in this [...] Organization Address City/State/ZIP Code Phon e Number [facility] - [address] [place], [place] [address] [facility] [place] [address] [facility] [address] documented in this encounter Visit Diagnoses Diagnosis Tumor Skin Uncertain Behavior - Primary Nevi Multiple documented in this encounter Care Teams Senior Vice President & General Counsel Relationship Specialty Start Date End Date Elsewhere, Pcp PCP - General Internal Medicine 01/03/20 documented as of this encounter
--- OUTSIDE RECORDS SUMMARY | 2022-03-11 07:19 | XMS_ITS | Encounter Summary ---
:1955 Author Organization [facility] Address [address] [place] [address] Care Team Providers Name Role Phone Elsewhere, [...] on filedocumented in this encounter Care Teams Senior Radiation Protection Technician Relationship Specialty Start Date End Date Elsewhere, Pcp PCP - General Internal Medicine 01/03/20 documented as of this encounter
--- OUTSIDE RECORDS SUMMARY | 2022-03-11 07:20 | XMS_ITS | Encounter Summary ---
:1955 Author Organization [facility] Address [address] [place] [address] Care Team Providers Name Role Phone Nicole [...] or relatives? How often do you attend latter-day or More than 4 times per year 02/19/2022 taoism services? Do you belong to any clubs or Yes 02/19/2022 organizations such as latter-day groups, unions, fraternal or athletic groups, or [...] OIL ORAL) mouth daily. Contains 500 mg [place]-3 Fatty acids per capsule Take with meals multivitamin tablet Take 1 tablet by 0 09/16/2010 mouth daily. documented as of this encounter Plan of Treatment Not on filedocumented as of this encounter Procedures Procedure Name Priority Date/Time Associated Comments Diagnosis HX MICROBIOLOGY Routine 08/21/2011 5:12 PM Result s for this REPORTS RADIOISOTOPE PRODUCTION OPERATOR procedure are i n the results section. HX MICROBIOLOGY Routine 08/21/2011 5:06 PM Result s for this REPORTS RADIOISOTOPE PRODUCTION OPERATOR procedure are i n the results section. ELECTROLYTE (CHEM 4) Routine 08/21/2011 5:06 PM R esults for this PANEL, S/P RADIOISOTOPE PRODUCTION OPERATOR procedure are i n the results section. CBC WITH Routine 08/21/2011 5:06 PM Results f or this DIFFERENTIAL, B RADIOISOTOPE PRODUCTION OPERATOR procedure ar e in the results section. HX MICROBIOLOGY Routine 08/21/2011 4:59 PM Result s for this REPORTS RADIOISOTOPE PRODUCTION OPERATOR procedure are i n the results section. documented in this encounter Results Microbiology Reports (08/21/2011 5:12 PM RADIOISOTOPE PRODUCTION OPERATOR) Specimen Anatomical Collection Method Collection Time Receive d Time (Source) Location / / Volume Laterality 08/21/2011 5:12 PM 2 5:13 RADIOISOTOPE PRODUCTION OPERATOR PM RADIOISOTOPE PRODUCTION OPERATOR Narrative [facility] - 08/26/2011 6:30 PM RADIOISOTOPE PRODUCTION OPERATOR 21-AUG-2011 BLOOD, ? SoftOrd# [id number] ?(Specimen Collected 17:12; Received 21-AUG-2011 17:32) ? Dept Lab Med Path ?BACTERIA/KENNY CULTURE, BLOOD ? (Reported 26-AUG-2011 18:30) FINAL ?No growth after 5 days of in cubation. Procedure Note 10/12/2017 21-AUG-2011 BLOOD, SoftOrd# [id number] (Specimen Collected 21-AUG-2011 17:12; Received 21-AUG-2011 17:32) Dept Lab Med Path BACTERIA/KENNY CULTURE, BLOOD (Repor monique 26-AUG-2011 18:30) FINAL No growth after 5 days of incubation. Paris Nichols M.D. LAB MICROBIOLOGY - GENERAL O RDERABLES Performing Organization Address City/State/ZIP Code Phon e Number [facility] - 200 [place], [place] [address] [facility] Microbiology Reports (08/21/2011 5:06 PM RADIOISOTOPE PRODUCTION OPERATOR) Specimen Anatomical Collection Method Collection Time Receive d Time (Source) Location / / Volume Laterality 08/21/2011 5:06 PM 2 5:07 RADIOISOTOPE PRODUCTION OPERATOR PM RADIOISOTOPE PRODUCTION OPERATOR Narrative [facility] - 08/26/2011 6:30 PM RADIOISOTOPE PRODUCTION OPERATOR 21-AUG-2011 BLOOD, ? SoftOrd# [id number] ?(Specimen Collected 17:06; Received 21-AUG-2011 17:29) ? Dept Lab Med Path ?BACTERIA/KENNY CULTURE, BLOOD ? (Reported 26-AUG-2011 18:30) FINAL ?No growth after 5 days of in cubation. Procedure Note 10/12/2017 21-AUG-2011 BLOOD, SoftOrd# [id number] (Specimen Collected 21-AUG-2011 17:06; Received 21-AUG-2011 17:29) Dept Lab Med Path BACTERIA/KENNY CULTURE, BLOOD (Repor monique 26-AUG-2011 18:30) FINAL No growth after 5 days of incubation. Paris Nichols M.D. LAB MICROBIOLOGY - GENERAL O RDERABLES Performing Organization Address City/State/ZIP Code Phon e Number [facility] - [address] [place], [place] [address] [facility] CBC with Differential (08/21/2011 5:06 PM RADIOISOTOPE PRODUCTION OPERATOR) [facility] Method Time Signature Hemoglobin 16.0 13.5 - [facility] 17.5 G/DL LABORATORIES - [facility] Hematocrit 44.9 38.8 - [facility] 50.0 % LABORATORIES [facility] RBC Distrib Width 12.9 11.8 - [facility] 15.6 % LABORATORIES [facility] Platelet Count 229 150 - 450 [facility] X10(9)/L LABORATORIES [facility] Lymphocytes 1.23 0.90 - [facility] 2.90 LABORATORIES - X10(9)/L [facility] Monocytes 0.51 0.30 - [facility] 0.90 LABORATORIES - X10(9)/L [facility] Erythrocytes 5.33 4.32 - [facility] 5.72 LABORATORIES - X10(12)/L [facility] MCV 84.2 81.2 - [facility] 95.1 FL LABORATORIES - [facility] Leukocytes 5.7 3.5 - [facility] 10.5 LABORATORIES - X10(9)/L [facility] Neutrophils 3.78 1.70 - [facility] 7.00 LABORATORIES - X10(9)/L [facility] Eosinophils 0.12 0.05 - [facility] 0.50 LABORATORIES - X10(9)/L [facility] Basophils 0.03 0.00 - [facility] 0.30 LABORATORIES - X10(9)/L [facility] Specimen Anatomical Collection Method Collection Time Receive d Time (Source) Location / / Volume Laterality 08/21/2011 5:06 PM 2 5:06 RADIOISOTOPE PRODUCTION OPERATOR PM RADIOISOTOPE PRODUCTION OPERATOR Paris Nichols M.D. LAB BLOOD ADD-ON Performing Organization Address City/[facility]/ZIP Code Phon e Number [facility] - [address] [place] [phone] [facility] Electrolyte (Chem 4) Panel (08/21/2011 5:06 PM RADIOISOTOPE PRODUCTION OPERATOR) Analysis Performed At Patho logist Time Signature Sodium, P 139 135 - 145 [facility] MMOL/L LABORATORIES - [facility] Potassium, P 3.8 3.6 - 5.2 [facility] MMOL/L LABORATORIES - [facility] HX Bicarbonate, 27 22 - 29 [facility] P/S MMOL/L LABORATORIES - [facility] Glucose, S 98 70 - 140 [facility] MG/DL LABORATORIES - [facility] Creatinine 1.0 0.8 - 1.3 [facility] MG/DL LABORATORIES - [facility] eGFR >60 >60 [facility] Non-Black/Afric ML/MIN/BSA LABORATORIES - an Citizen Of [place] [facility] eGFR-Black/Afri >60 >60 [facility] can Citizen Of [place] ML/MIN/BSA LABORATORIES - [facility] Chloride, S 103 100 - 108 [facility] MMOL/L LABORATORIES - [facility] BUN (Blood Urea 18 8 - 24 [facility] Nitrogen), S MG/DL LABORATORIES - [facility] Specimen Anatomical Collection Method Collection Time Receive d Time (Source) Location / / Volume Laterality 08/21/2011 5:06 PM 2 5:06 RADIOISOTOPE PRODUCTION OPERATOR PM RADIOISOTOPE PRODUCTION OPERATOR Paris Nichols M.D. LAB BLOOD ADD-ON Performing Organization Address City/State/ZIP Code Phon e Number [facility] - [address] [place], [place] [address] [facility] Microbiology Reports (08/21/2011 4:59 PM RADIOISOTOPE PRODUCTION OPERATOR) Specimen Anatomical Collection Method Collection Time Receive d Time (Source) Location / / Volume Laterality 08/21/2011 4:59 PM 2 5:14 RADIOISOTOPE PRODUCTION OPERATOR PM RADIOISOTOPE PRODUCTION OPERATOR Narrative [facility] LABORATORIES - [facility] - 08/24/2011 2:58 PM RADIOISOTOPE PRODUCTION OPERATOR 21-AUG-2011 TOE, SWAB RIGHT 5TH ?SoftOrd# [id number] ?(Specimen Collected 16:59; Received 21-AUG-2011 17:14) ? [...] 21-AUG-2011 TOE, SWAB RIGHT 5TH SoftOrd # [id number] (Specimen Collected 21-AUG-2011 16:59; Received 21-AUG-2011 17:14) [...] Organization Address City/State/ZIP Code Phon e Number [facility] - [address] [place], [place] [address] [facility] documented in this encounter Visit Diagnoses Not on filedocumented in this encounter Care Teams Consumer Relations Specialist Relationship Specialty Start Date End Date Nicole Andrade M.D., PCP - General Internal Medicine 09/03/10 02/01/18 M[facility] [address] [place] [phone] documented as of this encounter
--- OUTSIDE RECORDS SUMMARY | 2022-03-11 07:20 | XMS_ITS | Encounter Summary ---
:1955 Author Organization [facility] Address [address] [place] [address] Care Team Providers Name Role Phone Nicole Andrade M.D., M.H.A. Primary Care Provider Encounter Details Date Type Department Care Team Description 10/15/2011 Hospital Encounter [facility] Fredrick Daley M.D. [address] [place] [phone] (Wo rk) Social History Tobacco Use Types [...] or relatives? How often do you attend methodist or More than 4 times per year 02/19/2022 jehovah's witness services? Do you belong to any clubs or Yes 02/19/2022 organizations such as methodist groups, unions, fraternal or athletic groups, or [...] OIL ORAL) mouth daily. Contains 500 mg [place]-3 Fatty acids per capsule Take with meals multivitamin tablet Take 1 tablet by 0 09/16/2010 mouth daily. documented as of this encounter Miscellaneous Notes Miscellaneous - Francisco Daley M.D. - 10/20/2011 8:10 AM CDT Results Notification Document Contains Addenda Addendum by TRISTEN NESS on 21 October 2011 18:15:53 CDT patient reviewed these labs with his primary in [place]. Addendum by TRISTEN NESS on 20 October 2011 11:00:44 CDT left message for patient to call back. From: FRANCISCO DALEY MD To: ALTON PIMENTEL LPN Sent: 10/20/2011 08:10:23 CDT ! Show up: 10/20/2011 13:10:23 [facility] Subject: Results Notification Actions: Note to Nurse Source: [facility] POWERCHART Document Id: [id number] documented in this encounter Plan of Treatment [...] AST (Aspartate Aminotransferase) (10/15/2011 7:25 AM CDT) [facility] gist Method Time Signature Aspartate 16 [...] MGDL HXeGFR (MDRD) >60 (H) <=61 POWERCHART [id number] Comment: A GFR of <60 mL/min is [...] on filedocumented in this encounter Care Teams Coat Tailor Relationship Specialty Start Date End Date Nicole Andrade M.D., PCP - General Internal Medicine 09/03/10 02/01/18 M[facility] [address] [place] [phone] documented as of this encounter
--- OUTSIDE RECORDS SUMMARY | 2022-03-11 07:20 | XMS_ITS | Encounter Summary ---
:1955 Author Organization [facility] Address [address] [place] [address] Care Team Providers Name Role Phone Nicole [...] or relatives? How often do you attend episcopal or More than 4 times per year 02/19/2022 buddhism services? Do you belong to any clubs or Yes 02/19/2022 organizations such as episcopal groups, unions, fraternal or athletic groups, or [...] or slept in a penitentiary (including now)? Sex Assigned at Date Recorded Male 12/02/2017 10:04 PM CDT documented as of this encounter Last Filed Vital Signs Vital Sign Reading Time Taken Comments Blood Pressure 152/79 08/23/2011 6:20 AM MANAGER PLANT Pulse 65 08/23/2011 6:20 AM MANAGER PLANT Temperature - - Respiratory Rate 12 08/23/2011 6:20 AM MANAGER PLANT Oxygen Saturation - - Inhaled Oxygen Concentration - - Weight 76.6 kg (168 lb 14 oz) 08/23/2011 6:20 AM MANAGER PLANT Height 170 cm (5' 6.93) 08/21/2011 7:02 PM MANAGER PLANT Body Mass Index 26.51 08/21/2011 7:02 PM MANAGER PLANT documented in this encounter Medications at Time of Discharge Medication Sig Dispensed Refills Start Date End Date aspirin 81 mg chewable Chew 1 tablet daily. 0 tablet DOCOSAHEXANOIC ACID/EPA Take 2 capsules by 0 09/01 (FISH OIL ORAL) mouth daily. Contains 500 mg [place]-3 Fatty acids per capsule Take with meals multivitamin tablet Take 1 tablet by 0 09/16/2010 mouth daily. documented as of this encounter Plan of Treatment Not on filedocumented as of this encounter Procedures Procedure Name Priority Date/Time Associated Comments Diagnosis ELECTROLYTE (CHEM 4) Routine 08/22/2011 8:22 AM R esults for this PANEL, S/P MANAGER PLANT procedure are i n the results section. CBC WITHOUT Routine 08/22/2011 8:22 AM Results f or this DIFFERENTIAL, B MANAGER PLANT procedure ar e in the results section. documented in this encounter Results CBC without Differential (08/22/2011 8:22 AM MANAGER PLANT) [facility] Method Time Signature Hemoglobin 14.8 13.5 - [facility] 17.5 G/DL [facility] Hematocrit 41.9 38.8 - [facility] 50.0 % [facility] RBC Distrib Width 12.6 11.8 - [facility] 15.6 % [facility] Platelet Count 191 150 - 450 [facility] X10(9)/L [facility] Erythrocytes 4.89 4.32 - [facility] 5.72 LABORATORIES - X10(12)/L [facility] MCV 85.7 81.2 - [facility] 95.1 FL [facility] Leukocytes 5.4 3.5 - [facility] 10.5 LABORATORIES - X10(9)/L [facility] Specimen Anatomical Collection Method Collection Time Receive d Time (Source) Location / / Volume Laterality 08/22/2011 8:22 AM 2 8:22 MANAGER PLANT AM MANAGER PLANT Historical Provider LAB BLOOD ADD-ON Performing Organization Address City/[facility] Code Phon e Number [facility] - [address] [place] [phone] [facility] Electrolyte (Chem 4) Panel (08/22/2011 8:22 AM MANAGER PLANT) Analysis Performed At [facility] logis Time Signature Sodium, S 140 135 - 145 [facility] MMOL/L [facility] Potassium, S 4.0 3.6 - 5.2 [facility] MMOL/L [facility] Creatinine 1.0 0.8 - 1.3 [facility] MG/DL [facility] eGFR >60 >60 [facility] Non-Black/Afric ML/MIN/BSA LABORATORIES - an [place] [facility] Anion Gap 9 7 - 15 [facility] Glucose, S 88 70 - 140 [facility] MG/DL [facility] Chloride, S 106 100 - 108 [facility] MMOL/L [facility] HX Bicarbonate, 25 22 - 29 [facility] P/S MMOL/L [facility] - [facility] eGFR-Black/Afri >60 >60 [facility] can [place] ML/MIN/BSA [facility] BUN (Blood Urea 16 8 - 24 [facility] Nitrogen), S MG/DL [facility] Specimen Anatomical Collection Method Collection Time Receive d Time (Source) Location / / Volume Laterality 08/22/2011 8:22 AM 2 8:22 MANAGER PLANT AM MANAGER PLANT Historical Provider LAB BLOOD ADD-ON Performing Organization Address City/[facility]/ZIP Code Phon e Number [facility] - [address] [place], [place] [address] [facility] documented in this encounter Visit Diagnoses Not on filedocumented in this encounter Care Teams Inpatient Care Manager Rn Relationship Specialty Start Date End Date Nicole Andrade M.D., PCP - General Internal Medicine 09/03/10 02/01/18 [address] [place] [phone] documented as of this encounter
== END 2022-03-11 07:16 | disposition home or self-care (01) ==
PROVIDERS: PCP Internal Medicine; Visit Provider Internal Medicine
DX: Z13.6 Encounter for screening for cardiovascular disorders (principal)
CPT/HCPCS: 76706

== ENCOUNTER 2023-04-04 10:20 | Outpatient (CLI) | payer MEDICARE, BC, SELFPAY | END 2023-04-04 10:21 | disposition home or self-care (01) | LOC: NFLDREF 10:21 | PROVIDERS: PCP Internal Medicine; Visit Provider Internal Medicine | DX: Z12.5 Encounter for screening for malignant neoplasm of prostate (principal) | CPT/HCPCS: 84153 ==

== ENCOUNTER 2023-07-14 14:18 | Outpatient (CLI) | payer MEDICARE, BC, SELFPAY ==
--- OUTSIDE RECORDS SUMMARY | 2023-07-15 06:45 | XMS_ITS | Encounter Summary ---
Author Name Unknown Organization [facility] Address [address] [place] [address] Care Team Providers Care Reinforced Concrete Inspector Name Role Phone Elsewhere, Pcp Primary Care Provider Unavailabl e Reason for Visit * Appointment Request (Routine) - Closed Specialty Diagnoses / Procedures Referred By Contac t Referred To Contact Dermatology Diagnoses Lesion Skin Referral ID Status Reason Start Date Expiration Date Visits Re quested Visits Authorized [id number] Closed 06/01/2023 05/31/2024 1 1 Encounter Details Date Type Department Care Team (Latest Contact Info) Description 06/03/2023 8:00 AM WAFER FAB OPERATOR Comprehensive Visit Department of Dermatology in [place], [place] [address] [place] [address] Cesia Griggs M.D. [address] [place] [address] Keratosis Seborrheic (Primary Dx); Nevus Atypical; Melanoma Family History Discharge Disposition: Home or Self Care Social History Tobacco Use Types Packs/Day Years Used Date Smoking Tobacco: Never Smokeless Tobacco: Never Humiliation, Afraid, Rape, and Kick questionnair e Answer Date Recorded Within the last year, have y ou been afraid of your partner or ex-partner? No 02/19/2022 Within the last year, have y ou been humiliated or emotionally abused in other ways by your partner or ex-partner? No Within the last year, have y ou been kicked, hit, slapped, or otherwise physically hurt by your partner or ex-partner? No 02/19/2022 Within the last year, have y ou been raped or forced to have any kind of sexual activity by your partner or ex-partner? No 02/19/2022 Social Connection and Isolat ion Panel [NHANES] Answer Date Recorded In a typical week, how many times do you talk on the phone with family, friends, or neighbors? More than three times a week 02/19/2022 How often do you get togethe r with friends or relatives? More than three times a week 02/19/2022 How often do you attend chur or adventist services? More than 4 times per year 02/19/2022 Do you belong to any clubs o r organizations such as gnosticist groups, unions, fraternal or athletic groups, or school groups? Yes 02/19/2022 How often do you attend meet ings of the clubs or organizations you belong to? More than 4 times per year 02/19/2022 Are you , , di vorced, , never , or living with a partner? 02/19/2022 AUDIT-C Answer Date Recorded Q1: How often do you have a drink containing alc ohol? 2-4 times a month 02/19/2022 Q2: How many drinks containi ng alcohol do you have on a typical day when you are drinking? 1 or 2 02/19/2022 Q3: How often do you have si x or more drinks on one occasion? Never 02/19/2022 Overall Financial Resource Strain (CARDIA) Answe r Date Recorded How hard is it for you to pa y for the very basics like food, housing, medical care, and heating? Not hard at all 06/01/2023 [facility] [place] of Occupat ional Health - Occupational Stress Questionnaire Answer Date Recorded Do you feel stress - tense, restless, nervous, or anxious, or unable to sleep at night because your mind is troubled all the time - these days? Not at all 02/19/2022 Exercise Vital Sign Answer Date Recorde d On average, how many days pe r week do you engage in moderate to strenuous exercise (like a brisk walk)? 5 days 06/01/2023 On average, how many minutes do you engage in exercise at this level? 110 min 06/01/2023 Hunger Vital Sign Answer Date Recorded Within the past 12 months, y ou worried that your food would run out before you got the money to buy more. Never true 06/01/20 23 Within the past 12 months, t he food you bought just didn't last and you didn't have money to get more. Never true 06/01/2023 PRAPARE - Transportation Answer Date Re corded In the past 12 months, has l ack of transportation kept you from medical appointments or from getting medications? No 05/05 In the past 12 months, has l ack of transportation kept you from meetings, work, or from getting things needed for daily living? No 06/01/2023 Nutrition Answer Date Recorded Nutrition: EVOO Fat Source No 06/01 On average, how many serving s of fruits and vegetables do you eat per day (serving size is equal to 1 cup or approximately the size of a tennis ball)? 3-5 06/01/2023 Dental Answer Date Recorded Dental: Regular Dentist Yes 02/20/20 Employment Answer Date Recorded Employment status Retired 06/01/2023 Housing Stability Answer Date Recorded What is your living situation today? I have a [facility] place to live 06/01/2023 Education Answer Date Recorded What is the highest level of school you have completed or the highest degree you have received? Professional school degree (e.g., , DDS, DVM, NAHED) 01/06/2019 Sex and Gender Information Value Date Recorded Sex Assigned at Male 12/02/2017 10:04 PM CDT Gender Identity Male 12/02/2017 10:04 PM CDT Sexual Orientation Straight 12/02/2017 10 :04 PM CDT documented as of this encounter Progress Notes * Cesia Griggs M.D. - 06/03/2023 8:00 AM CST REFERRAL: No referring provider defined for this encounter. Correspondence to: Cesia Griggs M.D. Supervised by: Dr. Naa Colon Patient seen and discussed with supervising health analytics consultant, who evaluated the patient and concurs with the assessment and plan. 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 He has personal history ofbasal cell carcinoma and severely atypical nevus. He has family history of melanoma in his father. He was last seen in our department 02/2023 for full body skin exam without any significant findings. Today, the patient states that he recently noticed a brown spot on the left upper arm that may be increasing in diameter and thickness. He denies any associated pruritus, tenderness, or spontaneous bleeding. 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 OBJECTIVE PHYSICAL EXAM General: Well appearing male in no acute distress and with appropriate affect. Skin: Focused skin examination of the left upper extremity was performed per patient request. Whtie type 2 skin with waxy stuck on appearing brown papule involving the left upper medial arm. ASSESSMENT / PLAN #1 Seborrheic keratosis #2 History severely atypical nevus #3 Family history of melanoma Patient was reassured of the benign nature of this skin lesion. Treatment is not necessary. If starts changing or becomes symptomatic he will notify us for re-evaluation. Sun protection and sun avoidance were reviewed with the patient. Educational materials were provided regarding skin self-examination, the warning signs and symptoms of skin cancer, and the proper useof sunscreens with SPF 30 or higher. PATIENT EDUCATION Ready to learn. No apparent learning barriers were identified. Learning preferences include listening. Explained diagnosis and treatment plan; patient/guardian of patient expressed understanding of the content. R FAB OPERATOR Associated attestation - Naa Ritter M.D. - 06/03/2023 8:29 AM WAFER FAB OPERATOR I saw and evaluated the patient, participating in the terrell portions of the service. I reviewed the resident/fellow???s note. I agree with the resident/fellow???s findings and plan. documented in this encounter Plan of Treatment Not on file documented as of this encounter Visit Diagnoses Diagnosis Keratosis Seborrheic- Primary Nevus Atypical Melanoma Family History documented in this encounter Care Teams Reinforced Concrete Inspector Relationship Specialty Start Date End Date Elsewhere, Pcp PCP - General Internal Medicine 01/03/20 documented as of this encounter
--- OUTSIDE RECORDS SUMMARY | 2023-07-15 06:45 | XMS_ITS | Clinical Summary ---
Author Name Unknown Organization [facility] Address [address] [place] [address] Care Team Providers Care Corporate Trust Officer Name Role Phone Elsewhere, Pcp Primary Care Provider Unavailabl e Source Comments Patient records contain information from all sites at [facility]. For routine questions regarding patient records, call [phone] during business hours, M-F 8:00 AM - 5:00 PM Central Time. Record requests for emergency care only can be directed to [phone] at any time.[facility] Allergies Active Allergy Reactions Criticality Noted Date Comments Benazepril Cough Low 12/30/2010 Vancomycin Itching,Other (see comments) Low 012 Medications Medication Sig Dispensed Refills Start Date End Date Status DOCOSAHEXANOIC ACID/EPA (FISH OIL ORAL) Take 2 capsules by mouth daily. Contains 500 mg [place]-3 Fatty acids per capsule Take with meals 0 09/16/2010 Active multivitamin tablet Take 1 tablet by mouth daily. 0 09/16/2010 Active ubidecarenone (COQ-10 ORAL) Take 200 mg by mouth daily. 0 11/19/2022 Active terazosin (HYTRIN) 5 mg capsule Take 5 mg by mouth once. 0 11/19/2022 Active simvastatin (ZOCOR) 20 mg tablet Take 20 mg by mouth daily. 0 11/19/2022 Active ketotifen ([place]) 0.025 % (0.035 %) ophthalmic solution Administer 1 drop into both eyes 2 (two) times a day as needed. 0 Active FLUTICASONE PROPIONATE NASAL Administer 1 spray into each nostril daily. 0 10/03/2011 Active Active Problems Problem Noted Date Diagnosed Date Detachment Vitreous Posterior Right 12/31/2017 [place] Bilateral 12/31/2017 Encounters Date Type Department Care Team Description 06/03/2023 8:00 AM MERCHANDISE FLOW TEAM LEADER Comprehensive Visit Department of Dermatology in [place], [place] [address] [place] [address] Cesia Griggs M.D. Keratosis Seborrheic (Primary Dx); Nevus Atypical; Melanoma Family History Discharge Disposition: Home or Self Care from Last 3 Months Immunizations Name Administration Dates Next Due HepB, Unspecified 01/02/1980,08/04/1979,07/04/18 80 Influenza Split 04/12/2012, 1,04/03/2010,2006 MMR 01/02/1992 OPV 11/15/1959,01/10/1959 SARS-COV-2 (COVID-19) - PFIZ ER (12 years or older) 08/18/2020,07/28/2020 Td, (Adult) Unspecified 01/02/1992 Tdap 01/23/2010 influenza vaccine quad (FLUZONE/FLUARIX) (6 months and older)(PF) 04/23/2020 Family History Medical History Relation Name Comments Melanoma Father Glaucoma Mother Relation Name Status Comments Father Mother Social History Tobacco Use Types Packs/Day Years Used Date Smoking Tobacco: Never Smokeless Tobacco: Never Tobacco Cessation:Counseling Given: Not Answered Humiliation, Afraid, Rape, and Kick questionnair e [...] How often do you attend chur or evangelical services? More than 4 times per year 02/19/2022 Do you belong to any clubs o r organizations such as yarsanism groups, unions, fraternal [...] and heating? Not hard at all 06/01/2023 [facility] [place] of Occupat ional Health - Occupational Stress [...] your living situation today? I have a [facility] place to live 06/01/2023 Education Answer Date Recorded What is the highest level of school you have completed or the highest degree you have received? Professional school degree (e.g., MD, DDS, DVM, NAHED) 01/06/2019 Sex and Gender Information Value Date Recorded Sex Assigned at Male 12/02/2017 10:04 PM CDT Gender Identity Male 12/02/2017 10:04 PM CDT Sexual Orientation Straight 12/02/2017 10 :04 PM CDT Last Filed Vital Signs Vital Sign Reading Time Taken Comments Blood Pressure 139/86 11/30/2013 8:54 AM CDT Vital sign result from Clinical Notes. Pulse 60 11/30/2013 8:54 AM CDT Vital sign result from Clinical Notes. Temperature - - Respiratory Rate 12 08/23/2011 6:20 AM MERCHANDISE FLOW TEAM LEADER Oxygen Saturation - - Inhaled Oxygen Concentration - - Weight 81.3 kg (179 lb 3.7 oz) 11/15/2012 3:14 PM CDT Height 106.5 cm (3' 5.93) 11/15/2012 3 :14 PM CDT Body Mass Index 71.68 11/15/2012 3:14 PM CDT Plan of Treatment Health Maintenance Due Date Last Done Comments CT Colonography 1955 Cologuard 1955 FIT 1955 Hepatitis C Screening 1955 Fasting Glucose for Diabetes Screening 08/22/2014 08/22/2011, 08/21/2011 Colonoscopy 11/03/2022 11/03/2012, 08/0 07/2006 (Performed elsewhere) Colorectal Cancer Screening 11/03/2022 Influenza Vaccine (#1) 2023 , 05/10/2021, 04/23/2020, Additional history exists Depression Screening (Annual PHQ-2) 07/04/2023 Fall Risk Screen (Annual) 07/04/2023 DTaP,Tdap,and Td Vaccines (3 - Td or Tdap) 03/03/2032 03/03/2022, 01/23/2010, 01/02/1992, Additional history exists Hepatitis B Vaccines Completed 01/02/1980, 01/02/1980, 08/04/1979, Additional history exists Zoster Vaccines Completed 03/10/2021, 12/02/2020 Pneumococcal vaccine (65+ years) Completed 03/03/20 COVID-19 Vaccine Completed 04/05/2023, 11/2021, 10/29/2021, Additional history exists Advance Directives For more information, please contact: [phone] Documents on File Type Date Recorded Patient Pusher Operator Expl anation Advance Directives 09/16/2010 12:00 AM Leg acy document. See document viewer. Care Teams Corporate Trust Officer Relationship Specialty Start Date End Date Elsewhere, Pcp PCP - General Internal Medicine 01/03/20
--- OUTSIDE RECORDS SUMMARY | 2023-07-15 06:45 | XMS_ITS | Encounter Summary ---
Author Name Unknown Organization [facility] Address [address] [place] [address] Care Team Providers Care Rn Home Care Name Role Phone Elsewhere, Pcp Primary Care Provider Unavailabl e Reason for Referral * Outpatient (Routine) - Authorized Specialty Diagnoses / Procedures Referred By Ricky hatch Referred To Contact Dermatology Diagnoses Photodamage Personal History Of Other Malignant Neoplasm Of Skin Melanoma Family History Cesia Griggs M.D. [address] [place] [phone] [facility] Referral ID Status Reason Start Date Expiration Date V isits Requested Visits Authorized [id number] Authorized 02/23/2023 02/22/2026 1 1 Scheduling Instructions FBSE Reason for Visit * Outpatient (Routine) - Closed Specialty Diagnoses / Procedures Referred By Ricky hatch Referred To Contact Dermatology Yaa Hamm M.D. 200 [place] [address] [facility] Referral ID Status Reason Start Date Expiration Date Visits Re quested Visits Authorized [id number] Closed 02/23/2022 02/22/2025 1 1 Encounter Details Date Type Department Care Team ([facility] st Contact Info) Description 02/23/2023 9:20 AM CDT Office Visit Department of Dermatology in [place], [place] [address] [place] [phone] Cesia Griggs M.D. [address] [place] [phone] Photodamage (Primary Dx); Personal History Of Other Malignant Neoplasm Of Skin; Melanoma Family History; Keratosis Seborrheic Social History Tobacco Use Types Packs/Day Years [...] How often do you attend chur or church services? More than 4 times per year 02/19/2022 Do you belong to any clubs o r organizations such as shinto groups, unions, fraternal or athletic groups, or [...] care, and heating? Not hard at all 02/19/2022 [facility] of Occupat ional Health - Occupational Stress [...] to strenuous exercise (like a brisk walk)? 6 days 02/19/2022 On average, how many minutes do you engage in exercise at this level? 140 min 02/19/2022 Hunger Vital Sign Answer Date Recorded Within the past 12 months, y ou worried that your food would run out before you got the money to buy more. Never true 02/20/20 22 Within the past 12 months, t he food you bought just didn't last and you didn't have money to get more. Never true 02/19/2022 PRAPARE - Transportation Answer Date Re corded In the past 12 months, has l ack of transportation kept you from medical appointments or from getting medications? No 02/01 In the past 12 months, has l ack of transportation kept you from meetings, work, or from getting things needed for daily living? No 02/19/2022 Housing Stability Vital Sign Answer Tanvir e Recorded In the last 12 months, was t here a time when you were not able to pay the mortgage or rent on time? No 02/19/2022 In the last 12 months, how many places have you lived? 1 02/19/2022 In the last 12 months, was t here a time when you did not have a steady place to sleep or slept in a senior care (including now)? No 02/19/2022 Nutrition Answer Date Recorded Nutrition: EVOO Fat Source No 02/19 On average, how many serving s of fruits and vegetables do you eat per day (serving size is equal to 1 cup or approximately the size of a tennis ball)? 2-3 02/19/2022 Dental Answer Date Recorded Dental: Regular Dentist Yes 02/20/20 Employment Answer Date Recorded Employment status Retired 02/19/2022 Education Answer Date Recorded What is the [...] Progress Notes * Cesia Griggs M.D. - 02/23/2023 9:20 AM CDT Correspondence to: Cesia Griggs M.D. Supervising residential solar sales consultant, Dr. Tanya Gaines, was immediately available, but consultation was not required. 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 male who presents for a skin check. 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 He does have family history of melanoma in his father. He was last seen by our department 02/2022 for full body skin exam without significant findings. Today, the patient states that he does not have any persistently itchy, tender, bleeding, or changing skin lesions. 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 Skin: Full skin examination of the scalp, face, neck, chest, abdomen, back, bilateral upper extremities, bilateral lower extremities, digits and nails, suprapubic area, and buttocks was performed perpatient request. White type 2 skin with minimal dermatoheliosis. Scattered light brown to dark brown, symmetric, uniform macules and thin papules on the trunk, and extremities with reassuring features under dermoscopy, including benign-appearing acral nevus on the right plantar big toe. Multiple pink to brown waxy, stuck-on appearing papules and plaques on the chest, abdomen, and back consistent with seborrheic keratoses. Various 1-2 mm red to purple dome shaped papules noted on the trunk, upper extremities, and lower extremities consistent with clarke angiomas. Purple vascular appearing papule consistent with hematoma involving the left distal big toe. ASSESSMENT AND PLAN ASSESSMENT / PLAN #1 History of NMSC #2 History of severely atypical nevus #3 Family history of melanoma #4 Dermatoheliosis Sun protection and sun avoidance were reviewed with the patient. Educational materials were provided regarding skin self-examination, the warning signs and symptoms of skin cancer, and the proper useof sunscreens with SPF 30 or higher. I would recommend a full skin cancer screening examination with an appropriately trained clinician every year. #5 Multiple nevi The ABCDE criteria for melanoma was reviewed with the patient. None of the patient's nevi reach theclinical threshold for biopsy. I recommend continued sun protection, self-skin examinations, and observation. Should any of the patient's nevi change in size, color, texture, or shape or develop symptoms such as itching or bleeding, I recommend an immediate return visit for reassessment. #6 Seborrheic keratoses #7 Clarke angiomas #8 Solar lentigines The benign nature of these skin lesions was discussed with the patient. No treatment is required. Irecommend continued observation. Should symptoms or changes develop related to these conditions, I would recommend a return visit for reassessment. PATIENT EDUCATION Ready to learn. No apparent learning barriers were identified. Learning preferences include listening. Explained diagnosis and treatment plan; patient/guardian of patient expressed understanding of the content. documented in this encounter Plan of Treatment Scheduled Referrals Name Type Priority Associated Diagnoses Order Schedule Dermatology office visit (clinic) Outpatient Referral Routine Photodamage Cancer Skin Personal History Melanoma Family History Expected: 02/24/2024 (Approximate), Expires: 05/26/2024 documented as of this encounter Visit Diagnoses Diagnosis Photodamage- Primary Personal History Of Other Malignant Neoplasm Of Skin Melanoma Family History Keratosis Seborrheic documented in this encounter Care Teams Rn Home Care Relationship Specialty Start Date End Date Elsewhere, Pcp PCP - General Internal Medicine 01/03/20 documented as of this encounter
--- OUTSIDE RECORDS SUMMARY | 2023-07-15 06:45 | XMS_ITS | Encounter Summary ---
Author Name Unknown Organization [facility] Address [address] [place] [address] Care Team Providers Care Regulatory Lead Name Role Phone Elsewhere, Pcp Primary Care Provider Unavailabl e Reason for Visit * Reason Onset Date Comments Pre-visit Intake 02/21/2023 Encounter Details Date Type Department Care Team (Latest Contact Info) Description 02/21/2023 4:15 PM CDT Clinical Communication Virtual Review in [address] [id number] Pre-visit Intake Social History Tobacco Use Types Packs/Day Years [...] 02/19/2022 How often do you attend chur ch or restoration services? More than 4 times per year 02/19/2022 Do you belong to any clubs o r organizations such as orthodox groups, unions, fraternal [...] and heating? Not hard at all 02/19/2022 [facility] [place] of Occupat ional Health - Occupational Stress [...] place to sleep or slept in a alf (including now)? No 02/19/2022 Nutrition Answer Date [...] on filedocumented in this encounter Care Teams Regulatory Lead Relationship Specialty Start Date End Date Elsewhere, Pcp PCP - General Internal Medicine 01/03/20 documented as of this encounter
--- OUTSIDE RECORDS SUMMARY | 2023-07-15 06:45 | XMS_ITS | Referral Summary ---
Author Name Unknown Organization [facility] Address [address] [place] [address] Care Team Providers Care Lead Dental Assistant Name Role Phone Elsewhere, Pcp Primary Care Provider Unavailabl e Source Comments Patient records contain information from all sites at [facility]. For routine questions regarding patient records, call [phone] during business hours, M-F 8:00 AM - 5:00 PM Central Time. Record requests for emergency care only can be directed to [phone] at any time.[facility] Encounters Date Type Department Care Team Description 06/03/2023 8:00 AM HEMOTHERAPIST Comprehensive Visit Department of Dermatology in [place], [place] [address] [place] [address] Cesia Griggs M.D. Keratosis Seborrheic (Primary Dx); Nevus Atypical; Melanoma Family History Discharge Disposition: Home or Self Care from Last 3 Months Allergies Active Allergy Reactions Criticality Noted Date Comments Benazepril Cough Low 12/30/2010 Vancomycin Itching,Other (see comments) Low 012 Medications Medication Sig Dispensed Refills Start Date End Date Status DOCOSAHEXANOIC ACID/EPA (FISH OIL ORAL) Take 2 capsules by mouth daily. Contains 500 mg [place]-3 Fatty acids per capsule Take with meals [...] Vitreous Posterior Right 12/31/2017 Pinguecula Bilateral 12/31/2017 Immunizations Name Administration Dates Next Due HepB, Unspecified 01/02/1980,08/04/1979,07/04/18 80 Influenza Split 04/12/2012, 1,04/03/2010,2006 MMR 01/02/1992 OPV 11/15/1959,01/10/1959 SARS-COV-2 (COVID-19) - PFIZ ER (12 years or older) 08/18/2020,07/28/2020 Td, (Adult) Unspecified 01/02/1992 Tdap 01/23/2010 influenza vaccine quad (FLUZONE/FLUARIX) (6 months and older)(PF) 04/23/2020 Social History Tobacco Use Types Packs/Day Years [...] often do you attend chur ch or jew services? More than 4 times per year 02/19/2022 Do you belong to any clubs o r organizations such as mandaen groups, unions, fraternal or athletic groups, or [...] and heating? Not hard at all 06/01/2023 [facility] [place] of Occupat ional Health - Occupational Stress [...] your living situation today? I have a [facility] place to live 06/01/2023 Education Answer [...] - Respiratory Rate 12 08/23/2011 6:20 AM HEMOTHERAPIST Oxygen Saturation - - Inhaled Oxygen Concentration - - Weight 81.3 kg (179 lb 3.7 oz) 11/15/2012 3:14 PM CDT Height 106.5 cm (3' 5.93) 11/15/2012 3 :14 PM CDT Body Mass Index 71.68 11/15/2012 3:14 PM CDT Plan of Treatment Not on file Advance Directives For more information, please contact: [phone] Documents on File Type Date Recorded Patient Correctional Treatment Specialist Expl anation Advance Directives 09/16/2010 12:00 AM Leg acy document. See document viewer. Care Teams Lead Dental Assistant Relationship Specialty Start Date End Date Elsewhere, Pcp PCP - General Internal Medicine 01/03/20
--- OUTSIDE RECORDS SUMMARY | 2023-07-15 06:45 | XMS_ITS ---
Author Name Unknown Organization [facility] Address [address] [place] [address] Care Team Providers Care Passenger Barge Master Name Role Phone Unavailable Unavailable Unavailable Surgery Details Not on file Complications Check Surgery Details section. Procedure Estimated Blood Loss Check Surgery Details section. Procedure Findings Check Surgery Details section. Procedure Specimens Taken Check Surgery Details section.
== END 2023-07-14 14:19 | disposition home or self-care (01) ==
LOC: NFLDREF 07-15 06:43
PROVIDERS: PCP Internal Medicine; Referring Provider Internal Medicine; Visit Provider Internal Medicine
DX: I10 Essential (primary) hypertension (principal)
CPT/HCPCS: 80048

== ENCOUNTER 2024-05-03 07:59 | Outpatient (CLI) | payer MEDICARE, BC, SELFPAY ==
--- OUTSIDE RECORDS SUMMARY | 2024-05-03 12:38 | XMS_ITS | Clinical Summary ---
Author Organization [facility] Address [address] [place] [address] Care Team Providers Care Pre Parole Counseling Aide Name Role Phone Elsewhere, Pcp Primary Care Provider Unavailabl e Source Comments Patient records contain information from all sites at [facility]. For routine questions regarding patient records, call [phone] during business hours, M-F 8:00 AM - 5:00 PM Central Time. Record requests for emergency care only can be directed to [phone] at any time.[facility] Allergies Active Allergy Reactions Criticality Noted Date Comments Benazepril Cough Low 12/30/2010 Vancomycin Itching,Other (see comments) Low 012 Medications DOCOSAHEXANOIC ACID/EPA (FISH OIL ORAL) Take 2 capsules by mouth daily. Contains 500 mg [place]-3 Fatty acids per capsule Take with meals 1 Active multivitamin tablet Take 1 tablet by mouth daily. 1 Active ubidecarenone (COQ-10 ORAL) Take 200 mg by mouth daily. 3 Active terazosin (HYTRIN) 5 mg capsule Take 5 mg by mouth once. 3 Active simvastatin (ZOCOR) 20 mg tablet Take 20 mg by mouth daily. 3 Active ketotifen (Alaway) 0.025 % (0.035 %) ophthalmic solution Administer 1 drop into both eyes 2 (two) times a day as needed. Active FLUTICASONE PROPIONATE NASAL Administer 1 spray into each nostril daily. 2 Active Active Problems Problem Noted Date Diagnosed Date Detachment Vitreous Posterior Right 12/31/2017 Pinguecula Bilateral 12/31/2017 Immunizations Name Administration Dates Next Due HepB, Unspecified 01/02/1980,08/04/1979,07/04/18 80 Influenza Split 04/12/2012, 1,04/03/2010,2006 MMR 01/02/1992 OPV 11/15/1959,01/10/1959 SARS-COV-2 (COVID-19) - PFIZ ER (Discontinued)(12 years or older) 08/18/2020,07/28/2020 Td, (Adult) Unspecified [...] week 02/19/2022 How often do you attend [facility] or presybeterian services? More than 4 times per year 02/19/2022 Do you belong to any clubs o r organizations such as scientology groups, unions, fraternal or athletic groups, or [...] and heating? Not hard at all 06/01/2023 [facility] of Occupat ional Health - Occupational Stress [...] living? No 06/01/2023 Nutrition Answer Date Recorded On average, how many serving s of fruits and vegetables do you eat per day (serving size is equal to 1 cup or approximately the size of a tennis ball)? 3-5 06/01/2023 Dental Answer Date Recorded Dental: Regular Dentist Yes 02/20/20 Employment Answer Date Recorded Employment status Retired 06/01/2023 Housing Stability Answer Date Recorded What is your living situation today? I have a [facility] place to live 06/01/2023 Education Answer Date Recorded What is the highest level of school you have completed or the highest degree you have received? Professional school degree (e.g., MD, DDS, DVM, NAHED) 01/06/2019 Sex and Gender Information Value Date Recorded Sex Assigned at Male 12/02/2017 10:04 PM CDT Legal Sex Male 2:39 PM MANAGER RETENTION Gender Identity Male 12/02/2017 10:04 PM CDT Sexual Orientation Straight 12/02/2017 10 :04 PM CDT Last Filed Vital Signs Vital Sign Reading Time Taken Comments Blood Pressure 139/86 11/30/2013 8:54 AM CDT Vital sign result from Clinical Notes. Pulse 60 11/30/2013 8:54 AM CDT Vital sign result from Clinical Notes. Temperature - - Respiratory Rate 12 08/23/2011 6:20 AM MANAGER RETENTION Oxygen Saturation - - Inhaled Oxygen Concentration - - Weight 81.3 kg (179 lb 3.7 oz) 11/15/2012 3:14 PM CDT Height 106.5 cm (3' 5.93) 11/15/2012 3 :14 PM CDT Body Mass Index 71.68 11/15/2012 3:14 PM CDT Plan of Treatment Health Maintenance Due Date Last Done Comments CT Colonography 1957 Cologuard 1957 FIT 1957 Hepatitis C Screening 1955 IPV Vaccines (3 of 3 - 4-dos e series) 1961 11/15/1959, 01/10/1959 Fasting Glucose for Diabetes Screening 08/22/2014 08/22/2011, 08/21/2011 Colonoscopy 11/03/2022 11/03/2012, 08/07/2006 (Performed elsewhere) Colorectal Cancer Screening 11/03/2022 Depression Screening (Annual PHQ-2) 07/04/2023 Fall Risk Screen (Annual) 07/04/2023 COVID-19 Vaccine (7 2023-2 5 season) 2024 04/05/2023, 04/07/2022, 10/29/2021, Additional history exists Influenza Vaccine (#1) 2024 , 04/28/2022, 05/10/2021, Additional history exists DTaP,Tdap,and Td Vaccines (3 - Td or Tdap) 03/03/2032 03/03/2022, 01/23/2010, 01/02/1992 Hepatitis B Vaccines Completed 01/02/1980, 08/04/1979, 07/04/1979 Zoster Vaccines Completed 03/10/2021, 12/02/2020 Pneumococcal vaccine (65+ years) Completed 03/03/20 22 Procedures Procedure Name Priority Date/Time Associated Diagnosis Comments COLONOSCOPY Routine 11/03/2012 1:16 PM CDT ELECTROLYTE (CHEM 4) PANEL, S/P Routine 08/22/2011 8:22 AM MANAGER RETENTION from Last 3 Months or Most Recently Relevant to Health Maintenance Results * Colonoscopy (11/03/2012 1:16 PM CDT) 11/03/2012 1:16 PM CDT Nicole Andrade M.D., M.H.A. GI PROCEDURE OR DERABLES Final Result [facility] [address] [place] [address] * Electrolyte (Chem 4) Panel (08/22/2011 8:22 AM MANAGER RETENTION) Sodium, S 140 135 - 145 MMOL/L [facility] Potassium, S 4.0 3.6 - 5.2 MMOL/L [facility] Creatinine 1.0 0.8 - 1.3 MG/DL [facility] eGFR Non-Black/Afric an Chadian >60 >60 ML/MIN/BSA [facility] Anion Gap 9 7 - 15 [facility] Glucose, S 88 70 - 140 MG/DL [facility] Chloride, S 106 100 - 108 MMOL/L [facility] HX Bicarbonate, P/S 25 22 - 29 MMOL/L [facility] eGFR-Black/Afri can Chadian >60 >60 ML/MIN/BSA [facility] BUN (Blood Urea Nitrogen), S 16 8 - 24 MG/DL [facility] 08/22/2011 8:22 AM MANAGER RETENTION 08/22/2011 8:22 AM MANAGER RETENTION us Historical Provider LAB BLOOD ADD-ON Final Resul t [facility] [address] [place] [address], [facility] from Last 3 Months or Most Recently Relevant to Health Maintenance Insurance MEDICARE [facility] [place] [address] Advance Directives For more information, please contact: [phone] Documents on File Type Date Recorded Patient Fur Grader Expl anation Advance Directives 09/16/2010 12:00 AM Leg acy document. See document viewer. Care Teams Pre Parole Counseling Aide Relationship Specialty Start Date End Date Elsewhere, Pcp PCP - General Internal Medicine 01/03/20
--- OUTSIDE RECORDS SUMMARY | 2024-05-03 12:38 | XMS_ITS | Referral Summary ---
Author Organization [facility] Address [address] [place] [address] Care Team Providers Care Marine Gear Keeper Name Role Phone Elsewhere, Pcp Primary Care Provider Unavailabl e Source Comments Patient records contain information from all sites at [facility]. For routine questions regarding patient records, call [phone] during business hours, M-F 8:00 AM - 5:00 PM Central Time. Record requests for emergency care only can be directed to [phone] at any time.[facility] Allergies Active Allergy Reactions Criticality Noted Date Comments Benazepril Cough Low 12/30/2010 Vancomycin Itching,Other (see comments) Low 012 Medications DOCOSAHEXANOIC ACID/EPA (FISH OIL ORAL) Take 2 capsules by mouth daily. Contains 500 mg [place]-3 Fatty acids per capsule Take with meals [...] week 02/19/2022 How often do you attend [facility] or voodoo services? More than 4 times per year 02/19/2022 Do you belong to any clubs o r organizations such as hindu groups, unions, fraternal [...] and heating? Not hard at all 06/01/2023 [facility] of Occupat ional Health - Occupational Stress [...] your living situation today? I [facility] a [facility] place to live 06/01/2023 Education Answer Date Recorded What is the highest level of school you have completed or the highest degree you have received? Professional school degree (e.g., MD, DDS, DVM, NAHED) 01/06/2019 Sex and Gender Information Value Date Recorded Sex Assigned at Male 12/02/2017 10:04 PM CDT Legal Sex Male 2:39 PM TEENAGE PROGRAM DIRECTOR Gender Identity Male 12/02/2017 10:04 PM CDT Sexual Orientation Straight 12/02/2017 10 :04 PM CDT Last Filed Vital Signs Vital Sign Reading Time Taken Comments Blood Pressure 139/86 11/30/2013 8:54 AM CDT Vital sign result from Clinical Notes. Pulse 60 11/30/2013 8:54 AM CDT Vital sign result from Clinical Notes. Temperature - - Respiratory Rate 12 08/23/2011 6:20 AM TEENAGE PROGRAM DIRECTOR Oxygen Saturation - - Inhaled Oxygen Concentration - - Weight 81.3 kg (179 lb 3.7 oz) 11/15/2012 3:14 PM CDT Height 106.5 cm (3' 5.93) 11/15/2012 3 :14 PM CDT Body Mass Index 71.68 11/15/2012 3:14 PM CDT Plan of Treatment Not on file Procedures Procedure Name Priority Date/Time Associated Diagnosis Comments COLONOSCOPY Routine 11/03/2012 1:16 PM CDT ELECTROLYTE (CHEM 4) PANEL, S/P Routine 08/22/2011 8:22 AM TEENAGE PROGRAM DIRECTOR from Last 3 Months or Most Recently Relevant to Health Maintenance Results * Colonoscopy (11/03/2012 1:16 PM CDT) 11/03/2012 1:16 PM CDT us Nicole Andrade M.D., M.H.A. GI PROCEDURE OR DERABLES Final Result [facility] [address] [id number] * Electrolyte (Chem 4) Panel (08/22/2011 8:22 AM TEENAGE PROGRAM DIRECTOR) Sodium, S 140 135 - 145 MMOL/L [facility] Potassium, S 4.0 3.6 - 5.2 MMOL/L [facility] Creatinine 1.0 0.8 - 1.3 MG/DL [facility] eGFR Non-Black/Afric an Z[place]ian >60 >60 ML/MIN/BSA [facility] Anion Gap 9 7 - [address] [facility] Glucose, S 88 70 - 140 MG/DL [facility] Chloride, S 106 100 - 108 MMOL/L [facility] HX Bicarbonate, P/S 25 22 - 29 MMOL/L [facility] eGFR-Black/Afri can Zambian >60 >60 ML/MIN/BSA [facility] BUN (Blood Urea Nitrogen), S 16 8 - 24 MG/DL [facility] 08/22/2011 8:22 AM TEENAGE PROGRAM DIRECTOR 08/22/2011 8:22 AM TEENAGE PROGRAM DIRECTOR us Historical Provider LAB BLOOD ADD-ON Final Resul t [facility] [address] from Last 3 Months or Most Recently Relevant to Health Maintenance Insurance [facility]ICARE [facility] Advance Directives For more information, please contact: [phone] Documents on File Type Date Recorded Patient Patternmaker All Around Expl anation Advance Directives 09/16/2010 12:00 AM Leg acy document. See document viewer. Care Teams Marine Gear Keeper Relationship Specialty Start Date End Date Elsewhere, Pcp PCP - General Internal Medicine 01/03/20
--- OUTSIDE RECORDS SUMMARY | 2024-05-03 12:38 | XMS_ITS ---
Author Organization [facility] Address [address] [place] [address] Care Team Providers Care Staff Occupational Therapist Name Role Phone Unavailable Unavailable Unavailable Surgery Details Not on file Complications Check Surgery Details section. Procedure Estimated Blood Loss Check Surgery Details section. Procedure Findings Check Surgery Details section. Procedure Specimens Taken Check Surgery Details section.
== END 2024-05-03 08:00 | disposition home or self-care (01) ==
LOC: NFLDREF 12:35
PROVIDERS: PCP Internal Medicine; Referring Provider Internal Medicine; Visit Provider Internal Medicine
DX: E78.5 Hyperlipidemia, unspecified (principal); N40.0 Benign prostatic hyperplasia without lower urinary tract symptoms; Z12.5 Encounter for screening for malignant neoplasm of prostate
CPT/HCPCS: 80061; G0103

== ENCOUNTER 2024-08-03 09:20 | Outpatient (CLI) | payer MEDICARE, BC, SELFPAY | END 2024-08-03 09:21 | disposition home or self-care (01) | LOC: NFLDREF 08-08 00:19 | PROVIDERS: PCP Internal Medicine; Referring Provider Internal Medicine; Visit Provider Internal Medicine | DX: I10 Essential (primary) hypertension (principal); E78.5 Hyperlipidemia, unspecified; E78.9 Disorder of lipoprotein metabolism, unspecified | CPT/HCPCS: 80053 ==